=== PATIENT | female | born 1980 | race American Indian/Alaskan Native ===

== ENCOUNTER 2017-09-04 02:03 | Inpatient (IN) | payer MEDICAID ==
[~2017-09-04] VITALS: Ht 154.9 cm; Wt 72.7 kg
[2017-09-04] VITALS (19 sets, daily range): BP systolic 98–124; BP diastolic 59–89
[~2017-09-04 02:03] MED LIST: FOLI1TAB16 PO; LACT10SO PO; MULT1TAB74 PO; ONDA4TAB6 PO; PANT40TA4 PO; THI100T PO
[2017-09-04] MEDS ORDERED: octreotide inj. 1,250 MCG in normal saline 250ml IV soln 250 ML IV ONE (02:56)
[2017-09-04] MEDS ORDERED: pantoprazole 40 MG vial IV ONE (03:00)
[2017-09-04] MEDS ORDERED: piperacillin/tazo 3.375gm/50ml 50 ML IV ONE (03:00)
[2017-09-04] MEDS ORDERED: ondansetron/PF 4mg/2ml inj IV ONE (03:00)
[2017-09-04] MEDS ORDERED: pantoprazole 40MG/NS 100ML BAG 100 ML IV ONE (03:00)
[2017-09-04] MEDS ORDERED: normal saline 1000ML IV soln IVB ONE (03:00)
[2017-09-04 03:31] LABS: BASOPHILS # (AUTO) 0.1 X10'3 (0-0.2); BASOPHILS % (AUTO) 1.4 % (0-1); EOSINOPHILS % (AUTO) 0.8 % (0-6); HEMOGLOBIN 7.1 g/dl (12.0-16.0); LYMPHOCYTES # (AUTO) 1.2 X10'3 (1.1-4.8); LYMPHOCYTES % (AUTO) 21.4 % (21-51); MEAN CORPUSCULAR HEMOGLOBIN 28.2 PG (27.0-31.0); MEAN CORPUSCULAR HGB CONC 32.6 % (33.0-36.5); MEAN CORPUSCULAR VOLUME 86.7 FL (78-98); MEAN PLATELET VOLUME 6.9 FL (7.4-10.4); MONOCYTES # (AUTO) 0.6 X10'3 (0-0.9); MONOCYTES % (AUTO) 11.9 % (2-12); NEUTROPHILS # (AUTO) 3.5 X10'3 (1.8-7.7); NEUTROPHILS % (AUTO) 64.5 % (42-75); PLATELET COUNT 118 X10'3 (140-440); RED BLOOD COUNT 2.52 X10'6 (4.20-5.60); RED CELL DISTRIBUTION WIDTH 19.1 % (11.5-14.5); WHITE BLOOD COUNT 5.5 X10'3 (4.5-11.0)
[2017-09-04 03:46] LABS: ALANINE AMINOTRANSFERASE 24 U/L (12-78); ALBUMIN 1.3 G/DL (3.4-5.0); ALBUMIN/GLOBULIN RATIO 0.3 (1.1-1.5); ALKALINE PHOSPHATASE 178 IU/L (46-116); ANION GAP 4 (8-16); ASPARTATE AMINO TRANSFERASE 54 U/L (10-37); BILIRUBIN,TOTAL 0.9 MG/DL (0.1-1.0); BLOOD UREA NITROGEN 12 MG/DL (7-18); CALCIUM 6.9 MG/DL (8.5-10.1); CHLORIDE 105 MMOL/L (99-107); ETHANOL 0.158 GM/DL (0.0-0.010); GLUCOSE 120 MG/DL (70-104); LIPASE 195 U/L (73-393); MAGNESIUM 1.2 MG/DL (1.5-2.4); POTASSIUM 4.3 MMOL/L (3.5-5.1); SODIUM 136 MMOL/L (135-145); TOTAL CARBON DIOXIDE 26.9 MMOL/L (24-32); TOTAL PROTEIN 5.8 G/DL (6.4-8.2); eGFR > 90 ML/MIN
[2017-09-04 03:47] LABS: HEMATOCRIT 21.8 % (35.0-45.0); INR 1.4 INR; PARTIAL THROMBOPLASTIN TIME 30 SECONDS (22-32); PROTHROMBIN TIME 14.8 SECONDS (9.0-12.0)
[2017-09-04 03:55] LABS: LACTIC SEPSIS 1.5 MMOL/L (0.4-2.0)
[2017-09-04] MEDS ORDERED: magnesium 2GM in 50ml NS 50 ML IV ONE (03:55)
[2017-09-04] MEDS ORDERED: octreotide 200mcg/ml 5ml vial ONE (03:56)
[2017-09-04 04:11] LABS: HCG SERUM QL NEGATIVE
[2017-09-04 04:17] LABS: CLARITY,URINE SLIGHTLY CLOUDY (Clear); COLOR,URINE YELLOW (Yellow); GLUCOSE, URINE NEGATIVE (Neg); KETONES,URINE TRACE mg/dl (Neg); LEUKOCYTE ESTERASE ,URINE NEGATIVE (Neg); NITRITES, URINE POSITIVE (Neg); OCCULT BLOOD,URINE LARGE (Neg); PROTEIN,URINE 30 mg/dl (Neg)
[2017-09-04 04:21] LABS: UA COLLECTION TYPE FOLEY CATH
[2017-09-04] MEDS ORDERED: magnesium hydroxide 30ml (MOM) UD suspension PO PRN (04:25)
[2017-09-04] MEDS ORDERED: HYDROcodone/acetaminophen 10/325mg tab PO PRN (04:25)
[2017-09-04] MEDS ORDERED: magnesium 4gm in 100ml NS 100 ML IV PRN (04:25)
[2017-09-04] MEDS ORDERED: magnesium Cl slow-release 64mg tablet PO PRN (04:25)
[2017-09-04] MEDS ORDERED: HYDROcodone/acetaminophen 5mg/325mg tablet PO PRN (04:25)
[2017-09-04] MEDS ORDERED: lactulose 20gm/30ml cup PO ONE (04:25)
[2017-09-04] MEDS ORDERED: bisacodyl 10mg suppository rectal RC PRN (04:25)
[2017-09-04] MEDS ORDERED: acetaminophen 325mg tablet PO PRN ×2 (04:25)
[2017-09-04] MEDS ORDERED: mag hydrox/Alum hydrox/simeth 30ml oral suspension PO PRN (04:25)
[2017-09-04] MEDS ORDERED: metoclopramide 5 mg/ml inj IV PRN (04:25)
[2017-09-04] MEDS ORDERED: diphenhydrAMINE 50 mg/ml inj IV PRN (04:25)
[2017-09-04] MEDS ORDERED: magnesium 2GM in 50ml NS 50 ML IV PRN (04:25)
[2017-09-04 04:26] LABS: BACTERIA,URINE 4+ /HPF (Neg); MUCUS STRANDS NONE SEEN /LPF (Neg); WBC,URINE 0-4 /HPF (0-4)
[2017-09-04 04:27] LABS: SQUAMOUS EPITHELIAL CELL,UR FEW /LPF (FEW); TRANSITIONAL EPI CELLS,URINE FEW /HPF
[2017-09-04 04:28] LABS: YEAST FEW /HPF (NEGATIVE)
[2017-09-04] MEDS ORDERED: haloperidol 5mg tablet PO PRN (04:30)
[2017-09-04] MEDS ORDERED: LORazepam 2 mg/ml vial IV PRN ×2 (04:30→20:20)
[2017-09-04] MEDS ORDERED: haloperidol lactate 5mg/ml inj IM PRN (04:30)
[2017-09-04] MEDS ORDERED: dextrose 50%-water 50ml dispensing syringe IV PRN ×2 (04:30→20:20)
[2017-09-04] MEDS ORDERED: thiamine 100mg/ml 2ml inj. IV ONE (04:30)
[2017-09-04 04:55] LABS: PHOSPHORUS 2.7 MG/DL (2.3-4.5)
[2017-09-04] MEDS: normal saline 1000ml 1,000 ML IV SCH (05:12)
[2017-09-04] MEDS: pantoprazole 40mg Tablet.DR PO SCH (07:30)
[2017-09-04] MEDS: furosemide 10 MG/1 ML 10ml inj IV SCH (07:44)
[2017-09-04] MEDS: lactulose 20gm/30ml cup PO SCH ×2 (07:45→17:31)
[2017-09-04] MEDS: cefTRIAXone 1g/NS 100ml IVPB 100 ML IV SCH (07:45)
[2017-09-04] MEDS: docusate sod 100mg capsule PO SCH ×2 (07:46→19:40)
[2017-09-04] MEDS ORDERED: multivitamins, therapeutics tablet PO SCH (08:00)
[2017-09-04] MEDS ORDERED: pantoprazole 40 MG vial IV SCH (08:00)
[2017-09-04] MEDS ORDERED: folic acid 1mg tablet PO SCH (08:00)
[2017-09-04] MEDS ORDERED: thiamine 100mg tablet PO SCH (08:00)
[2017-09-04] MEDS ORDERED: rifaximin 550mg tablet PO SCH (08:00)
[2017-09-04] MEDS ORDERED: diphenhydrAMINE 25mg capsule PO ONE (08:35)
[2017-09-04] MEDS ORDERED: furosemide 20 MG/2 ML vial IV ONE (08:35)
[2017-09-04 09:03] LABS: ACETAMINOPHEN < 2.0 UG/ML (10-30)
[2017-09-04] MEDS: lactobacillus rhamnosus 10,000 MMU CELLS/CAPSULE PO SCH (17:30)
[2017-09-04] MEDS ORDERED: oxyCODONE IR 5mg (immed. release) tablet PO PRN (18:35)
[2017-09-04 19:43] LABS: BASOPHILS # (AUTO) 0.1 X10'3 (0-0.2); BASOPHILS % (AUTO) 1.5 % (0-1); EOSINOPHILS # (AUTO) 0.1 X10'3 (0-0.9); EOSINOPHILS % (AUTO) 1.7 % (0-6); LYMPHOCYTES # (AUTO) 1.2 X10'3 (1.1-4.8); MEAN CORPUSCULAR HEMOGLOBIN 28.5 PG (27.0-31.0); MEAN CORPUSCULAR HGB CONC 32.8 % (33.0-36.5); MEAN CORPUSCULAR VOLUME 86.9 FL (78-98); MEAN PLATELET VOLUME 7.3 FL (7.4-10.4); MONOCYTES # (AUTO) 0.6 X10'3 (0-0.9); NEUTROPHILS # (AUTO) 2.1 X10'3 (1.8-7.7); NEUTROPHILS % (AUTO) 52.8 % (42-75); PLATELET COUNT 78 X10'3 (140-440); RED CELL DISTRIBUTION WIDTH 17.8 % (11.5-14.5)
[2017-09-04 20:05] LABS: HEMATOCRIT 19.2 % (35.0-45.0); HEMOGLOBIN 6.3 g/dl (12.0-16.0)
[2017-09-04] MEDS ORDERED: folic acid inj. 2 MG, thiamine inj. 100 MG, MVI, adult No.4 with vit. K 10 ML in dextro... IV SCH ×4 (20:20)
[2017-09-04] MEDS ORDERED: furosemide 40mg/4ml inj IV SCH (20:20)
[2017-09-04] MEDS ORDERED: thiamine inj. 100 MG in normal saline 100ml IV soln 100 ML IV ONE (20:20)
[2017-09-04] MEDS ORDERED: diatr meglu/diatrizoate 30ml oral sol.-(3 dose) bottle PO SCH (21:00)
[2017-09-04] MEDS ORDERED: temazepam 15mg capsule PO PRN (21:00)
[2017-09-04 21:32] LABS: HCG SERUM QL NEGATIVE
[2017-09-05] VITALS: BP 107/68
[2017-09-05 01:00] VITALS: BP 115/63
[2017-09-05] MEDS: lactulose 20gm/30ml cup PO SCH ×4 (01:24→14:00)
[2017-09-05] MEDS ORDERED: thiamine 100mg/ml 2ml inj. IV ONE (02:30)
[2017-09-05 04:20] LABS: BASOPHILS # (AUTO) 0.1 X10'3 (0-0.2); BASOPHILS % (AUTO) 1.5 % (0-1); EOSINOPHILS # (AUTO) 0.1 X10'3 (0-0.9); EOSINOPHILS % (AUTO) 1.5 % (0-6); HEMATOCRIT 27.5 % (35.0-45.0); LYMPHOCYTES # (AUTO) 1.5 X10'3 (1.1-4.8); LYMPHOCYTES % (AUTO) 31.6 % (21-51); MEAN CORPUSCULAR HEMOGLOBIN 28.7 PG (27.0-31.0); MEAN CORPUSCULAR HGB CONC 32.8 % (33.0-36.5); MEAN CORPUSCULAR VOLUME 87.4 FL (78-98); MEAN PLATELET VOLUME 7.6 FL (7.4-10.4); MONOCYTES # (AUTO) 0.7 X10'3 (0-0.9); MONOCYTES % (AUTO) 13.7 % (2-12); NEUTROPHILS # (AUTO) 2.5 X10'3 (1.8-7.7); NEUTROPHILS % (AUTO) 51.7 % (42-75); PLATELET COUNT 92 X10'3 (140-440); RED BLOOD COUNT 3.14 X10'6 (4.20-5.60); RED CELL DISTRIBUTION WIDTH 16.4 % (11.5-14.5); WHITE BLOOD COUNT 4.9 X10'3 (4.5-11.0)
[2017-09-05 04:32] LABS: INR 1.4 INR; PARTIAL THROMBOPLASTIN TIME 31 SECONDS (22-32); PROTHROMBIN TIME 14.5 SECONDS (9.0-12.0)
[2017-09-05 04:36] LABS: ALANINE AMINOTRANSFERASE 24 U/L (12-78); ALBUMIN 1.4 G/DL (3.4-5.0); ALBUMIN/GLOBULIN RATIO 0.3 (1.1-1.5); ALKALINE PHOSPHATASE 139 IU/L (46-116); AMYLASE 44 U/L (25-115); ANION GAP 5 (8-16); ASPARTATE AMINO TRANSFERASE 47 U/L (10-37); BILIRUBIN,TOTAL 1.8 MG/DL (0.1-1.0); BLOOD UREA NITROGEN 14 MG/DL (7-18); CALCIUM 7.1 MG/DL (8.5-10.1); CHLORIDE 103 MMOL/L (99-107); CREATININE 0.61 MG/DL (0.40-0.90); GLUCOSE 124 MG/DL (70-104); LIPASE 102 U/L (73-393); MAGNESIUM 1.2 MG/DL (1.5-2.4); PHOSPHORUS 2.7 MG/DL (2.3-4.5); POTASSIUM 3.2 MMOL/L (3.5-5.1); SODIUM 137 MMOL/L (135-145); TOTAL CARBON DIOXIDE 28.7 MMOL/L (24-32); eGFR > 90 ML/MIN
[2017-09-05 07:00] VITALS: BP 116/72
[2017-09-05] MEDS: lactobacillus rhamnosus 10,000 MMU CELLS/CAPSULE PO SCH ×2 (07:22→17:38)
[2017-09-05] MEDS: pantoprazole 40mg Tablet.DR PO SCH (07:22)
[2017-09-05] MEDS: diatr meglu/diatrizoate 30ml oral sol.-(3 dose) bottle PO SCH ×2 (07:22→09:02)
[2017-09-05] MEDS: ondansetron/PF 4mg/2ml inj IV PRN ×3 (07:24→20:43)
[2017-09-05] MEDS: cefTRIAXone 1g/NS 100ml IVPB 100 ML IV SCH (08:00)
[2017-09-05] MEDS ORDERED: folic acid inj. 2 MG, thiamine inj. 100 MG, MVI, adult No.4 with vit. K 10 ML in dextro... IV SCH ×4 (09:00)
[2017-09-05] MEDS: furosemide 10 MG/1 ML 10ml inj IV SCH (10:43)
[2017-09-05] MEDS: docusate sod 100mg capsule PO SCH ×2 (10:44→21:13)
[2017-09-05] MEDS: folic acid 1mg tablet PO SCH (10:44)
[2017-09-05] MEDS: spironolactone 50 MG tablet PO SCH (10:44)
[2017-09-05] MEDS: thiamine 100mg tablet PO SCH (10:44)
[2017-09-05] MEDS: multivitamins, therapeutics tablet PO SCH (10:44)
[2017-09-05] MEDS ORDERED: CefTRIAXone/D5W-Rocephin 1gm 50 ML IV ONE (10:45)
[2017-09-05 11:00] VITALS: BP 118/89
[2017-09-05] MEDS: normal saline 1000ml 1,000 ML IV SCH (13:34)
[2017-09-05 19:00] VITALS: BP 120/82
[2017-09-05] MEDS ORDERED: proCHLORperazine 10 MG/2 ml inj IV PRN (20:25)
[2017-09-05] MEDS: diphenhydrAMINE 25mg capsule PO PRN (21:13)
[2017-09-06] VITALS: BP 121/84
[2017-09-06] MEDS: ondansetron/PF 4mg/2ml inj IV PRN ×4 (03:03→22:05)
[2017-09-06] MEDS ORDERED: LORazepam 2 mg/ml vial IV PRN ×2 (04:30→20:20)
[2017-09-06] MEDS ORDERED: LORazepam 1 MG tablet PO PRN ×2 (04:30→20:20)
[2017-09-06 06:10] LABS: ALANINE AMINOTRANSFERASE 25 U/L (12-78); ALBUMIN 1.2 G/DL (3.4-5.0); ALBUMIN/GLOBULIN RATIO 0.3 (1.1-1.5); ALKALINE PHOSPHATASE 107 IU/L (46-116); AMYLASE 42 U/L (25-115); ANION GAP 4 (8-16); ASPARTATE AMINO TRANSFERASE 67 U/L (10-37); BLOOD UREA NITROGEN 11 MG/DL (7-18); BUN/CREATININE RATIO 18.3 (6.6-38.0); CHLORIDE 103 MMOL/L (99-107); GLUCOSE 95 MG/DL (70-104); LIPASE 97 U/L (73-393); MAGNESIUM 1.2 MG/DL (1.5-2.4); SODIUM 136 MMOL/L (135-145); TOTAL CARBON DIOXIDE 28.9 MMOL/L (24-32); TOTAL PROTEIN 5.3 G/DL (6.4-8.2); eGFR > 90 ML/MIN
[2017-09-06 07:13] VITALS: BP 120/83
[2017-09-06 07:26] LABS: POTASSIUM 2.9 MMOL/L (3.5-5.1)
[2017-09-06] MEDS ORDERED: potassium Cl 40MEQ/NS 500ml 500 ML IV PRN ×3 (07:40→12:10)
[2017-09-06] MEDS ORDERED: potassium Cl 20 mEq SR tablet PO PRN ×3 (07:40→12:10)
[2017-09-06] MEDS: multivitamins, therapeutics tablet PO SCH (09:29)
[2017-09-06] MEDS: docusate sod 100mg capsule PO SCH ×2 (09:29→19:57)
[2017-09-06] MEDS: pantoprazole 40mg Tablet.DR PO SCH (09:29)
[2017-09-06] MEDS: folic acid 1mg tablet PO SCH (09:29)
[2017-09-06] MEDS: spironolactone 50 MG tablet PO SCH (09:30)
[2017-09-06] MEDS: lactobacillus rhamnosus 10,000 MMU CELLS/CAPSULE PO SCH ×2 (09:30→16:35)
[2017-09-06] MEDS: thiamine 100mg tablet PO SCH (09:30)
[2017-09-06] MEDS: furosemide 10 MG/1 ML 10ml inj IV SCH (09:32)
[2017-09-06] MEDS: potassium Cl 40MEQ/NS 500ml 500 ML IV PRN ×2 (09:50→18:02)
[2017-09-06 12:00] VITALS: BP 131/81
[2017-09-06] MEDS ORDERED: K and/or MAG REPLACEMENT MC SCH (12:10)
[2017-09-06] MEDS: cefTRIAXone 1g/NS 100ml IVPB 100 ML IV SCH (16:36)
[2017-09-06 20:00] VITALS: BP 118/80
[2017-09-06] MEDS ORDERED: furosemide 10 MG/1 ML 10ml inj IV ONE (21:35)
[2017-09-06 21:51] LABS: BASOPHILS % (AUTO) 1.4 % (0-1); EOSINOPHILS # (AUTO) 0.1 X10'3 (0-0.9); EOSINOPHILS % (AUTO) 3.2 % (0-6); HEMATOCRIT 25.5 % (35.0-45.0); HEMOGLOBIN 8.4 g/dl (12.0-16.0); LYMPHOCYTES # (AUTO) 0.8 X10'3 (1.1-4.8); LYMPHOCYTES % (AUTO) 23.9 % (21-51); MEAN CORPUSCULAR HEMOGLOBIN 28.9 PG (27.0-31.0); MEAN CORPUSCULAR HGB CONC 32.9 % (33.0-36.5); MEAN CORPUSCULAR VOLUME 87.7 FL (78-98); MEAN PLATELET VOLUME 7.6 FL (7.4-10.4); MONOCYTES # (AUTO) 0.3 X10'3 (0-0.9); MONOCYTES % (AUTO) 8.5 % (2-12); NEUTROPHILS # (AUTO) 2.1 X10'3 (1.8-7.7); PLATELET COUNT 76 X10'3 (140-440); RED BLOOD COUNT 2.91 X10'6 (4.20-5.60); RED CELL DISTRIBUTION WIDTH 16.8 % (11.5-14.5); WHITE BLOOD COUNT 3.4 X10'3 (4.5-11.0)
[2017-09-06 22:06] LABS: ALANINE AMINOTRANSFERASE 23 U/L (12-78); ALBUMIN 1.2 G/DL (3.4-5.0); ALBUMIN/GLOBULIN RATIO 0.3 (1.1-1.5); ALKALINE PHOSPHATASE 114 IU/L (46-116); ANION GAP 2 (8-16); ASPARTATE AMINO TRANSFERASE 69 U/L (10-37); BILIRUBIN,TOTAL 0.8 MG/DL (0.1-1.0); BLOOD UREA NITROGEN 9 MG/DL (7-18); BUN/CREATININE RATIO 15.5 (6.6-38.0); CALCIUM 6.9 MG/DL (8.5-10.1); CHLORIDE 103 MMOL/L (99-107); CREATININE 0.58 MG/DL (0.40-0.90); GLUCOSE 92 MG/DL (70-104); POTASSIUM 3.7 MMOL/L (3.5-5.1); SODIUM 134 MMOL/L (135-145); TOTAL CARBON DIOXIDE 28.7 MMOL/L (24-32); TOTAL PROTEIN 5.4 G/DL (6.4-8.2); eGFR > 90 ML/MIN
[2017-09-07] VITALS: BP 134/88
[2017-09-07 06:32] LABS: ALANINE AMINOTRANSFERASE 27 U/L (12-78); ALBUMIN 1.2 G/DL (3.4-5.0); ALBUMIN/GLOBULIN RATIO 0.3 (1.1-1.5); ALKALINE PHOSPHATASE 118 IU/L (46-116); AMYLASE 55 U/L (25-115); ANION GAP 4 (8-16); ASPARTATE AMINO TRANSFERASE 67 U/L (10-37); BILIRUBIN,TOTAL 0.9 MG/DL (0.1-1.0); BLOOD UREA NITROGEN 7 MG/DL (7-18); CALCIUM 6.9 MG/DL (8.5-10.1); CHLORIDE 103 MMOL/L (99-107); CREATININE 0.54 MG/DL (0.40-0.90); GLUCOSE 80 MG/DL (70-104); LIPASE 168 U/L (73-393); MAGNESIUM 1.1 MG/DL (1.5-2.4); POTASSIUM 3.2 MMOL/L (3.5-5.1); SODIUM 135 MMOL/L (135-145); TOTAL CARBON DIOXIDE 27.9 MMOL/L (24-32); TOTAL PROTEIN 5.3 G/DL (6.4-8.2); eGFR > 90 ML/MIN
[2017-09-07 07:53] VITALS: BP 109/80
[2017-09-07] MEDS: cefTRIAXone 1g/NS 100ml IVPB 100 ML IV SCH (08:00)
[2017-09-07] MEDS: ondansetron/PF 4mg/2ml inj IV PRN (08:06)
[2017-09-07] MEDS: potassium Cl 20 mEq SR tablet PO PRN ×2 (09:34→13:24)
[2017-09-07] MEDS: multivitamins, therapeutics tablet PO SCH (09:35)
[2017-09-07] MEDS: pantoprazole 40mg Tablet.DR PO SCH (09:35)
[2017-09-07] MEDS: lactobacillus rhamnosus 10,000 MMU CELLS/CAPSULE PO SCH ×2 (09:35→17:26)
[2017-09-07] MEDS: docusate sod 100mg capsule PO SCH ×2 (09:35→22:55)
[2017-09-07] MEDS: spironolactone 50 MG tablet PO SCH (09:36)
[2017-09-07] MEDS: thiamine 100mg tablet PO SCH (09:36)
[2017-09-07] MEDS: folic acid 1mg tablet PO SCH (09:36)
[2017-09-07] MEDS: furosemide 10 MG/1 ML 10ml inj IV SCH (09:37)
[2017-09-07] MEDS ORDERED: CefTRIAXone 1 gm/50ml D5W ADV 50 ML IV ONE (10:10)
[2017-09-07 11:00] VITALS: BP 120/90
[2017-09-07 20:00] VITALS: BP 121/76
[2017-09-07] MEDS: diphenhydrAMINE 25mg capsule PO PRN (22:57)
[2017-09-08] VITALS (9 sets, daily range): BP systolic 90–114; BP diastolic 51–77
[2017-09-08] MEDS: normal saline 1000ml 1,000 ML IV SCH (04:24)
[2017-09-08] MEDS ORDERED: LORazepam 1 MG tablet PO PRN ×2 (04:30→20:20)
[2017-09-08] MEDS ORDERED: LORazepam 2 mg/ml vial IV PRN ×2 (04:30→20:20)
[2017-09-08 06:50] LABS: ALANINE AMINOTRANSFERASE 20 U/L (12-78); ALBUMIN 1.3 G/DL (3.4-5.0); ALBUMIN/GLOBULIN RATIO 0.3 (1.1-1.5); ALKALINE PHOSPHATASE 154 IU/L (46-116); AMYLASE 60 U/L (25-115); ANION GAP 4 (8-16); ASPARTATE AMINO TRANSFERASE 61 U/L (10-37); BILIRUBIN,TOTAL 0.8 MG/DL (0.1-1.0); BLOOD UREA NITROGEN 7 MG/DL (7-18); BUN/CREATININE RATIO 13.5 (6.6-38.0); CALCIUM 6.8 MG/DL (8.5-10.1); CHLORIDE 103 MMOL/L (99-107); CREATININE 0.52 MG/DL (0.40-0.90); GLUCOSE 96 MG/DL (70-104); LIPASE 201 U/L (73-393); POTASSIUM 3.2 MMOL/L (3.5-5.1); SODIUM 135 MMOL/L (135-145); TOTAL CARBON DIOXIDE 28.3 MMOL/L (24-32); TOTAL PROTEIN 5.3 G/DL (6.4-8.2); eGFR > 90 ML/MIN
[2017-09-08] MEDS: lactobacillus rhamnosus 10,000 MMU CELLS/CAPSULE PO SCH (07:30)
[2017-09-08 07:36] LABS: BASOPHILS % (AUTO) 0.9 % (0-1); EOSINOPHILS # (AUTO) 0.1 X10'3 (0-0.9); EOSINOPHILS % (AUTO) 2.8 % (0-6); HEMATOCRIT 24.1 % (35.0-45.0); HEMOGLOBIN 7.9 g/dl (12.0-16.0); LYMPHOCYTES # (AUTO) 0.8 X10'3 (1.1-4.8); LYMPHOCYTES % (AUTO) 24.8 % (21-51); MEAN CORPUSCULAR HEMOGLOBIN 28.9 PG (27.0-31.0); MEAN CORPUSCULAR HGB CONC 32.6 % (33.0-36.5); MEAN CORPUSCULAR VOLUME 88.6 FL (78-98); MONOCYTES # (AUTO) 0.5 X10'3 (0-0.9); MONOCYTES % (AUTO) 14.6 % (2-12); NEUTROPHILS # (AUTO) 1.8 X10'3 (1.8-7.7); NEUTROPHILS % (AUTO) 56.9 % (42-75); PLATELET COUNT 66 X10'3 (140-440); RED BLOOD COUNT 2.72 X10'6 (4.20-5.60); RED CELL DISTRIBUTION WIDTH 17.2 % (11.5-14.5); WHITE BLOOD COUNT 3.3 X10'3 (4.5-11.0)
[2017-09-08] MEDS: spironolactone 50 MG tablet PO SCH (07:54)
[2017-09-08] MEDS ORDERED: magnesium 2GM in 50ml NS 50 ML IV PRN (07:55)
[2017-09-08] MEDS ORDERED: magnesium Cl slow-release 64mg tablet PO PRN (07:55)
[2017-09-08] MEDS ORDERED: magnesium 4gm in 100ml NS 100 ML IV PRN (07:55)
[2017-09-08] MEDS: folic acid 1mg tablet PO SCH (07:57)
[2017-09-08] MEDS: docusate sod 100mg capsule PO SCH ×2 (07:57→22:17)
[2017-09-08] MEDS: furosemide 10 MG/1 ML 10ml inj IV SCH (07:57)
[2017-09-08] MEDS: multivitamins, therapeutics tablet PO SCH (07:58)
[2017-09-08] MEDS: thiamine 100mg tablet PO SCH (07:58)
[2017-09-08] MEDS ORDERED: CefTRIAXone 1 gm/50ml D5W ADV 50 ML IV ONE (07:59)
[2017-09-08] MEDS: cefTRIAXone 1g/NS 100ml IVPB 100 ML IV SCH (08:00)
[2017-09-08] MEDS: pantoprazole 40mg Tablet.DR PO SCH (08:01)
[2017-09-08] MEDS ORDERED: normal saline 1000ml 1,000 ML IV SCH (14:04)
[2017-09-08] MEDS ORDERED: LIDOcaine Viscous 15ml cup PO ONE (14:05)
[2017-09-08] MEDS ORDERED: simethicone 40mg/0.6ml oral drops 30ml MC ONE (14:05)
[2017-09-08] MEDS ORDERED: fentaNYL/PF 50MCG/1 ML 2ML syringe IV PRN (14:05)
[2017-09-08] MEDS ORDERED: MIDAZolam 5mg/5ml vial IV PRN (14:05)
[2017-09-08] MEDS ORDERED: LIDOcaine Viscous 15ml cup ONE (15:11)
[2017-09-08] MEDS ORDERED: MIDAZolam 1mg/ml 10ml vial ONE (15:11)
[2017-09-08] MEDS ORDERED: fentaNYL/PF 50MCG/1 ML 2ML syringe ONE (15:11)
[2017-09-08] MEDS: potassium Cl 20 mEq SR tablet PO PRN ×2 (16:56→23:41)
[2017-09-08] MEDS: levoFLOXACIN 500mg tablet PO SCH (16:56)
[2017-09-08] MEDS: octreotide inj. 1,250 MCG in normal saline 250ml IV soln 243.75 ML IV SCH (17:36)
[2017-09-09] VITALS: BP 100/65
[2017-09-09] MEDS: ondansetron/PF 4mg/2ml inj IV PRN ×2 (03:49→19:56)
[2017-09-09 06:56] LABS: ALANINE AMINOTRANSFERASE 26 U/L (12-78); ALBUMIN 1.4 G/DL (3.4-5.0); ALBUMIN/GLOBULIN RATIO 0.3 (1.1-1.5); ALKALINE PHOSPHATASE 150 IU/L (46-116); AMYLASE 51 U/L (25-115); ANION GAP 6 (8-16); ASPARTATE AMINO TRANSFERASE 61 U/L (10-37); BILIRUBIN,TOTAL 1.1 MG/DL (0.1-1.0); BLOOD UREA NITROGEN 3 MG/DL (7-18); BUN/CREATININE RATIO 5.7 (6.6-38.0); CHLORIDE 102 MMOL/L (99-107); CREATININE 0.53 MG/DL (0.40-0.90); GLUCOSE 133 MG/DL (70-104); LIPASE 123 U/L (73-393); MAGNESIUM 1.7 MG/DL (1.5-2.4); POTASSIUM 4.2 MMOL/L (3.5-5.1); SODIUM 133 MMOL/L (135-145); TOTAL CARBON DIOXIDE 25.2 MMOL/L (24-32); eGFR > 90 ML/MIN
[2017-09-09 07:29] VITALS: BP 102/66
[2017-09-09] MEDS: pantoprazole 40mg Tablet.DR PO SCH (10:50)
[2017-09-09] MEDS: thiamine 100mg tablet PO SCH (10:50)
[2017-09-09] MEDS: LACTOBACILLUS RHAMNOSUS GG 15 billion unit sprinkle caps PO SCH (10:51)
[2017-09-09] MEDS: multivitamins, therapeutics tablet PO SCH (10:51)
[2017-09-09] MEDS: folic acid 1mg tablet PO SCH (10:52)
[2017-09-09] MEDS: levoFLOXACIN 500mg tablet PO SCH (10:52)
[2017-09-09] MEDS: docusate sod 100mg capsule PO SCH ×2 (10:52→19:56)
[2017-09-09] MEDS: spironolactone 50 MG tablet PO SCH (10:53)
[2017-09-09] MEDS: cefTRIAXone 1g/NS 100ml IVPB 100 ML IV SCH (10:55)
[2017-09-09] MEDS: furosemide 10 MG/1 ML 10ml inj IV SCH (10:56)
[2017-09-09 11:00] VITALS: BP 124/77
[2017-09-09] MEDS: octreotide inj. 1,250 MCG in normal saline 250ml IV soln 243.75 ML IV SCH ×2 (17:00→21:58)
[2017-09-09 19:00] VITALS: BP 106/71
[2017-09-09] MEDS: oxyCODONE IR 5mg (immed. release) tablet PO PRN (19:57)
[2017-09-10] VITALS: BP 116/78
[2017-09-10] MEDS: normal saline 1000ml 1,000 ML IV SCH (05:25)
[2017-09-10 06:42] LABS: MAGNESIUM 1.3 MG/DL (1.5-2.4); POTASSIUM 3.5 MMOL/L (3.5-5.1)
[2017-09-10 07:57] VITALS: BP 98/65
[2017-09-10] MEDS: LACTOBACILLUS RHAMNOSUS GG 15 billion unit sprinkle caps PO SCH (09:25)
[2017-09-10] MEDS: spironolactone 50 MG tablet PO SCH (09:26)
[2017-09-10] MEDS: thiamine 100mg tablet PO SCH (09:26)
[2017-09-10] MEDS: docusate sod 100mg capsule PO SCH (09:26)
[2017-09-10] MEDS: multivitamins, therapeutics tablet PO SCH (09:26)
[2017-09-10] MEDS: folic acid 1mg tablet PO SCH (09:26)
[2017-09-10] MEDS: furosemide 10 MG/1 ML 10ml inj IV SCH (09:28)
[2017-09-10] MEDS: cefTRIAXone 1g/NS 100ml IVPB 100 ML IV SCH (09:29)
[2017-09-10] MEDS: pantoprazole 40mg Tablet.DR PO SCH (09:30)
[2017-09-10] MEDS: ondansetron/PF 4mg/2ml inj IV PRN (09:39)
[2017-09-10] MEDS: oxyCODONE IR 5mg (immed. release) tablet PO PRN ×2 (09:39→15:01)
[2017-09-10 11:00] VITALS: BP 97/61
[2017-09-10] MEDS: levoFLOXACIN 500mg tablet PO SCH (11:33)
[2017-09-10] MEDS ORDERED: RIFA200T2 PO (12:45)
[2017-09-10] MEDS ORDERED: SPIR50TA3 PO (15:25)
[2017-09-10] MEDS ORDERED: PANT40TA4 PO (16:14)
== END 2017-09-10 16:59 | disposition home or self-care (01) ==
LOC: ER 02:04 → ED HOLD 04:24 → SUR 3N 08:28
PROVIDERS: ADMIT Family Medicine; ATTEND Internal Medicine
PROC: 30233N1 Transfusion of Nonautologous Red Blood Cells into Peripheral Vein, Percutaneous Approach (ICD-10-PCS; principal; 2017-09-04)
PROC: 0W9G3ZZ Drainage of Peritoneal Cavity, Percutaneous Approach (ICD-10-PCS; 2017-09-04)
PROC: 06L38CZ Occlusion of Esophageal Vein with Extraluminal Device, Via Natural or Artificial Opening Endoscopic (ICD-10-PCS; 2017-09-08)
DX: K76.6 Portal hypertension (principal); I85.11 Secondary esophageal varices with bleeding; D69.6 Thrombocytopenia, unspecified; G31.2 Degeneration of nervous system due to alcohol; K72.90 Hepatic failure, unspecified without coma; E88.09 Other disorders of plasma-protein metabolism, not elsewhere classified; E83.42 Hypomagnesemia; K70.31 Alcoholic cirrhosis of liver with ascites; N39.0 Urinary tract infection, site not specified; K29.20 Alcoholic gastritis without bleeding; D63.8 Anemia in other chronic diseases classified elsewhere; F10.229 Alcohol dependence with intoxication, unspecified; F12.90 Cannabis use, unspecified, uncomplicated; F17.210 Nicotine dependence, cigarettes, uncomplicated; G89.4 Chronic pain syndrome; J44.9 Chronic obstructive pulmonary disease, unspecified; K80.20 Calculus of gallbladder without cholecystitis without obstruction; G43.909 Migraine, unspecified, not intractable, without status migrainosus; R16.1 Splenomegaly, not elsewhere classified; K31.89 Other diseases of stomach and duodenum; Z79.899 Other long term (current) drug therapy; Z86.19 Personal history of other infectious and parasitic diseases
CPT/HCPCS: 36415; 43244; 49083; 51702; 74176; 80053; 80320; 80329; 81001; 82140; 82150; 83605; 83690; 83735; 83880; 84100; 84132; 84703; 85025; 85610; 85730; 86885; 86900; 86901; 86920; 86922; 87040; 87070; 87075; 87102; 93005; 96365; 96368; 96375; 97116; 97162; 99291; A4620; A6213; A6449; C1758; C9113; G0500; J0696; J1200; J1940; J2060; J2250; J2270; J2354; J2405; J2543; J2765; J3010; J3411; J3475; J3480; J3490; J7030; J7060; P9016; Q0163; Q9963

== ENCOUNTER 2017-09-19 03:46 | Emergency (ER) | payer MEDICAID ==
[~2017-09-19] VITALS: Ht 149.9 cm; Wt 43.0 kg
[~2017-09-19 03:46] MED LIST changes: +RIFA200T2 PO; +SPIR50TA3 PO
[2017-09-19] MEDS ORDERED: albumin (human) 25% 100 ML IV solution IV ONE ×2 (03:55→04:25)
[2017-09-19 04:43] VITALS: BP 125/59
[2017-09-19] MEDS ORDERED: acetaminophen 325mg tablet PO ONE (05:30)
[2017-09-20] MEDS ORDERED: SPIR50TA3 PO (16:44)
[2017-09-20] MEDS ORDERED: FURO40TA4 PO (16:44)
== END 2017-09-19 05:37 | disposition home or self-care (01) ==
LOC: ER 03:47
DX: K70.31 Alcoholic cirrhosis of liver with ascites (principal); R10.9 Unspecified abdominal pain; G43.909 Migraine, unspecified, not intractable, without status migrainosus; J44.9 Chronic obstructive pulmonary disease, unspecified; F12.90 Cannabis use, unspecified, uncomplicated; Z59.0 Homelessness; Z56.0 Unemployment, unspecified
CPT/HCPCS: 49083; 96374; 99285; A6258; P9047

== ENCOUNTER 2017-09-20 16:19 | Emergency (ER) | payer MEDICAID ==
[~2017-09-20] VITALS: Ht 154.9 cm; Wt 72.7 kg
[2017-09-20] MEDS ORDERED: FURO40TA4 PO (16:44)
[2017-09-20] MEDS ORDERED: SPIR50TA3 PO (16:44)
[2017-09-20 16:57] LABS: CLARITY,URINE Clear (Clear); COLOR,URINE Yellow (Yellow); GLUCOSE, URINE Negative (Neg); KETONES,URINE Negative (Neg); LEUKOCYTE ESTERASE ,URINE Negative (Neg); NITRITES, URINE Negative (Neg); OCCULT BLOOD,URINE Moderate (Neg); PROTEIN,URINE Trace mg/dl (Neg)
[2017-09-20 17:00] LABS: UA COLLECTION TYPE CLN CATCH MIDSTREAM
[2017-09-20 17:12] LABS: URINE AMPHETAMINE SCREEN NEGATIVE (Neg); URINE BARBITUATE SCREEN NEGATIVE (Neg); URINE BENZODIAZEPINES SCREEN NEGATIVE (Neg); URINE CANNABINOID SCREEN NEGATIVE (Neg); URINE COCAINE SCREEN NEGATIVE (Neg); URINE METHADONE SCREEN NEGATIVE (Neg); URINE OPIATE SCREEN NEGATIVE (Neg); URINE PHENCYCLIDINE SCREEN NEGATIVE (Neg)
[2017-09-20 17:19] LABS: WBC,URINE 0-4 /HPF (0-4)
[2017-09-20 17:20] LABS: BACTERIA,URINE 1+ /HPF (Neg); SQUAMOUS EPITHELIAL CELL,UR MANY /LPF (FEW)
[2017-09-20 19:02] VITALS: BP 110/70
== END 2017-09-20 19:07 | disposition home or self-care (01) ==
LOC: ER 16:19
DX: K74.60 Unspecified cirrhosis of liver (principal); F10.20 Alcohol dependence, uncomplicated; J44.9 Chronic obstructive pulmonary disease, unspecified; G89.29 Other chronic pain; F12.10 Cannabis abuse, uncomplicated; F17.210 Nicotine dependence, cigarettes, uncomplicated; Z59.0 Homelessness
CPT/HCPCS: 80305; 81001; 99284

== ENCOUNTER 2017-09-22 10:48 | Emergency (ER) | payer MEDICAID ==
[~2017-09-22] VITALS: Ht 162.6 cm; Wt 55.0 kg
[~2017-09-22 10:48] MED LIST changes: +FURO40TA4 PO
[2017-09-22 11:12] LABS: CLARITY,URINE Clear (Clear); COLOR,URINE Yellow (Yellow); GLUCOSE, URINE Negative (Neg); KETONES,URINE Negative (Neg); LEUKOCYTE ESTERASE ,URINE Negative (Neg); NITRITES, URINE Negative (Neg); OCCULT BLOOD,URINE Moderate (Neg); PROTEIN,URINE 30 mg/dl (Neg)
[2017-09-22 11:13] LABS: UA COLLECTION TYPE CLN CATCH MIDSTREAM
[2017-09-22 11:23] LABS: SQUAMOUS EPITHELIAL CELL,UR FEW /LPF (FEW)
[2017-09-22 11:24] LABS: BACTERIA,URINE FEW /HPF (Neg); WBC,URINE 0-4 /HPF (0-4)
[2017-09-22 13:31] VITALS: BP 131/78
== END 2017-09-22 13:33 | disposition home or self-care (01) ==
LOC: ER 10:49
DX: F10.129 Alcohol abuse with intoxication, unspecified (principal); G43.909 Migraine, unspecified, not intractable, without status migrainosus; J44.9 Chronic obstructive pulmonary disease, unspecified; G89.29 Other chronic pain; Z86.19 Personal history of other infectious and parasitic diseases; Z59.0 Homelessness; Z56.0 Unemployment, unspecified; Z79.899 Other long term (current) drug therapy; Y90.9 Presence of alcohol in blood, level not specified
CPT/HCPCS: 81001; 99284; A4353

== ENCOUNTER 2017-10-19 13:02 | Emergency (ER) | payer MEDICAID, OTHER ==
[~2017-10-19] VITALS: Ht 149.9 cm; Wt 72.7 kg
[2017-10-19] MEDS ORDERED: normal saline 1000ML IV soln IVB ONE ×2 (13:30→16:05)
[2017-10-19 14:08] LABS: HEMATOCRIT 31.8 % (35.0-45.0); HEMOGLOBIN 10.3 g/dl (12.0-16.0); MEAN CORPUSCULAR HEMOGLOBIN 24.8 PG (27.0-31.0); MEAN CORPUSCULAR HGB CONC 32.2 % (33.0-36.5); MEAN CORPUSCULAR VOLUME 77.2 FL (78-98); MEAN PLATELET VOLUME 8.1 FL (7.4-10.4); RED BLOOD COUNT 4.13 X10'6 (4.20-5.60); RED CELL DISTRIBUTION WIDTH 19.6 % (11.5-14.5)
[2017-10-19 14:25] LABS: ALANINE AMINOTRANSFERASE 31 U/L (12-78); ALBUMIN 2.2 G/DL (3.4-5.0); ALBUMIN/GLOBULIN RATIO 0.3 (1.1-1.5); ALKALINE PHOSPHATASE 215 IU/L (46-116); ANION GAP 9 (8-16); ASPARTATE AMINO TRANSFERASE 106 U/L (10-37); BILIRUBIN,TOTAL 0.7 MG/DL (0.1-1.0); BLOOD UREA NITROGEN 3 MG/DL (7-18); BUN/CREATININE RATIO 8.6 (6.6-38.0); CALCIUM 7.4 MG/DL (8.5-10.1); CHLORIDE 109 MMOL/L (99-107); CREATININE 0.35 MG/DL (0.40-0.90); POTASSIUM 3.7 MMOL/L (3.5-5.1); SODIUM 149 MMOL/L (135-145); TOTAL CARBON DIOXIDE 31.3 MMOL/L (24-32); TOTAL PROTEIN 8.5 G/DL (6.4-8.2); eGFR > 90 ML/MIN
[2017-10-19 14:26] LABS: PLATELET COUNT 45 X10'3 (140-440)
[2017-10-19 14:28] LABS: ETHANOL 0.498 GM/DL (0.0-0.010); GLUCOSE 96 MG/DL (70-104)
[2017-10-19 14:42] LABS: ANISOCYTOSIS 2+; PLATELET ESTIMATE DECREASED; POLYCHROMASIA 1+; ROULEAUX 1+; SPHEROCYTES FEW; TARGET CELLS 1+; TOTAL CELLS COUNTED 100
[2017-10-19 14:43] LABS: HYPOCHROMASIA 1+; LARGE PLATELETS FEW; MICROCYTOSIS 1+; SMUDGE CELLS FEW
[2017-10-19 14:44] LABS: NUCLEATED RED BLOOD CELLS 1 /100WBC (0-0)
[2017-10-19 17:02] VITALS: BP 105/65
== END 2017-10-19 17:03 | disposition home or self-care (01) ==
LOC: ER 13:04
DX: S46.811A Strain of other muscles, fascia and tendons at shoulder and upper arm level, right arm, initial encounter (principal); E86.0 Dehydration; F10.129 Alcohol abuse with intoxication, unspecified; K70.30 Alcoholic cirrhosis of liver without ascites; D69.6 Thrombocytopenia, unspecified; J44.9 Chronic obstructive pulmonary disease, unspecified; G89.29 Other chronic pain; D64.9 Anemia, unspecified; F12.10 Cannabis abuse, uncomplicated; Z59.0 Homelessness; Z56.0 Unemployment, unspecified; Z79.899 Other long term (current) drug therapy; W19.XXXA Unspecified fall, initial encounter; Y93.89 Activity, other specified; Y92.89 Other specified places as the place of occurrence of the external cause; Y99.9 Unspecified external cause status; Y90.9 Presence of alcohol in blood, level not specified
CPT/HCPCS: 36415; 70450; 73030; 73110; 73130; 80053; 80320; 84484; 85025; 93005; 96360; 99285; J7030

== ENCOUNTER 2018-01-27 13:35 | Emergency (ER) | payer MEDICAID, OTHER ==
[~2018-01-27] VITALS: Ht 154.9 cm; Wt 72.7 kg
[~2018-01-27 13:35] MED LIST changes: -FURO40TA4 PO
[2018-01-27 13:42] VITALS: BP 104/47
== END 2018-01-27 14:25 | disposition home or self-care (01) ==
LOC: ER 13:35
DX: K70.9 Alcoholic liver disease, unspecified (principal); F10.129 Alcohol abuse with intoxication, unspecified; G43.909 Migraine, unspecified, not intractable, without status migrainosus; J44.9 Chronic obstructive pulmonary disease, unspecified; G89.29 Other chronic pain; F12.10 Cannabis abuse, uncomplicated; Z86.19 Personal history of other infectious and parasitic diseases; Z91.14 Patient's other noncompliance with medication regimen; Z56.0 Unemployment, unspecified; Z59.0 Homelessness; Z79.899 Other long term (current) drug therapy; Y90.0 Blood alcohol level of less than 20 mg/100 ml
CPT/HCPCS: 99284

== ENCOUNTER 2018-02-12 18:25 | Inpatient (IN) | payer MEDICAID, OTHER ==
[~2018-02-12] VITALS: Ht 160 cm; Wt 77.0 kg
[~2018-02-12 18:25] MED LIST changes: -SPIR50TA3 PO; +SPIR50TA5 PO
[2018-02-12] MEDS ORDERED: normal saline 1000ML IV soln IVB ONE (19:50)
[2018-02-12] MEDS ORDERED: thiamine inj. 100 MG in normal saline 100ml IV soln 99 ML IV ONE (19:50)
[2018-02-12] MEDS ORDERED: ondansetron/PF 4mg/2ml inj IV ONE (19:50)
[2018-02-12] MEDS ORDERED: phenobarbital inj 260 MG in normal saline 100ml IV soln 99 ML IV STA (19:55)
[2018-02-12] MEDS: magnesium/D5W IVPB 100 ML IV SCH ×2 (20:29→20:53)
[2018-02-12 20:55] LABS: HEMATOCRIT 26.8 % (35.0-45.0); HEMOGLOBIN 8.6 g/dl (12.0-16.0); MEAN CORPUSCULAR HEMOGLOBIN 24.4 PG (27.0-31.0); MEAN CORPUSCULAR HGB CONC 32.2 % (33.0-36.5); MEAN CORPUSCULAR VOLUME 75.9 FL (78-98); MEAN PLATELET VOLUME 10.6 FL (7.4-10.4); RED BLOOD COUNT 3.53 X10'6 (4.20-5.60); RED CELL DISTRIBUTION WIDTH 21.5 % (11.5-14.5)
[2018-02-12 20:56] LABS: ALANINE AMINOTRANSFERASE 32 U/L (12-78); ALBUMIN 1.3 G/DL (3.4-5.0); ALBUMIN/GLOBULIN RATIO 0.3 (1.1-1.5); ALKALINE PHOSPHATASE 224 IU/L (46-116); ANION GAP 8 (8-16); ASPARTATE AMINO TRANSFERASE 142 U/L (10-37); BILIRUBIN,TOTAL 0.7 MG/DL (0.1-1.0); BLOOD UREA NITROGEN 4 MG/DL (7-18); BUN/CREATININE RATIO 8.2 (6.6-38.0); CALCIUM 6.8 MG/DL (8.5-10.1); CHLORIDE 103 MMOL/L (99-107); CREATININE 0.49 MG/DL (0.40-0.90); GLUCOSE 132 MG/DL (70-104); MAGNESIUM 1.4 MG/DL (1.5-2.4); POTASSIUM 3.8 MMOL/L (3.5-5.1); SODIUM 138 MMOL/L (135-145); TOTAL CARBON DIOXIDE 27.4 MMOL/L (24-32); TOTAL PROTEIN 6.3 G/DL (6.4-8.2); eGFR > 90 ML/MIN
[2018-02-12 20:57] LABS: ETHANOL 0.419 GM/DL (0.0-0.010)
[2018-02-12] MEDS ORDERED: temazepam 15mg capsule PO PRN (21:00)
[2018-02-12 21:26] LABS: PLATELET COUNT 14 X10'3 (140-440)
[2018-02-12 22:06] LABS: ANISOCYTOSIS 3+; NUCLEATED RED BLOOD CELLS 3 /100WBC (0-0); PLATELET ESTIMATE DECREASED; TOTAL CELLS COUNTED 100
[2018-02-12 22:07] LABS: MICROCYTOSIS 1+
[2018-02-12 22:08] LABS: TARGET CELLS 1+
[2018-02-12] MEDS ORDERED: haloperidol 5mg tablet PO PRN (22:10)
[2018-02-12] MEDS ORDERED: dicyclomine 10 MG capsule PO PRN (22:10)
[2018-02-12] MEDS ORDERED: thiamine 100mg/ml 2ml inj. IV ONE (22:10)
[2018-02-12] MEDS ORDERED: dextrose 50%-water 50ml dispensing syringe IV PRN (22:10)
[2018-02-12] MEDS ORDERED: magnesium hydroxide 30ml (MOM) UD suspension PO PRN (22:10)
[2018-02-12] MEDS ORDERED: diphenhydrAMINE 25mg capsule PO PRN (22:10)
[2018-02-12] MEDS ORDERED: HYDROcodone/acetaminophen 5mg/325mg tablet PO PRN (22:10)
[2018-02-12] MEDS ORDERED: LORazepam 1 MG tablet PO PRN (22:10)
[2018-02-12] MEDS ORDERED: HYDROmorphone inj. 0.5 MG/0.5 ML DISP.SYRIN IV PRN ×2 (22:10)
[2018-02-12] MEDS ORDERED: acetaminophen 650mg rectal suppository RC PRN (22:10)
[2018-02-12] MEDS ORDERED: diphenhydrAMINE 50 mg/ml inj IV PRN (22:10)
[2018-02-12] MEDS ORDERED: bisacodyl 10mg suppository rectal RC PRN (22:10)
[2018-02-12] MEDS ORDERED: haloperidol lactate 5mg/ml inj IM PRN (22:10)
[2018-02-12] MEDS ORDERED: mag hydrox/Alum hydrox/simeth 30ml oral suspension PO PRN (22:10)
[2018-02-12] MEDS ORDERED: cyclobenzaprine 10mg tablet PO PRN (22:10)
[2018-02-12] MEDS ORDERED: HYDROcodone/acetaminophen 10/325mg tab PO PRN (22:10)
[2018-02-12] MEDS ORDERED: magnesium 2GM in 50ml NS 50 ML IV PRN (22:10)
[2018-02-12] MEDS ORDERED: acetaminophen 325mg tablet PO PRN ×2 (22:10)
[2018-02-12] MEDS ORDERED: magnesium 4gm in 100ml NS 100 ML IV PRN (22:10)
[2018-02-12] MEDS ORDERED: morphine 4 MG/ML inj SYRINge IV PRN ×2 (22:10)
[2018-02-12 22:35] LABS: INR 1.3 INR; PARTIAL THROMBOPLASTIN TIME 31 SECONDS (22-32); PROTHROMBIN TIME 13.7 SECONDS (9.0-12.0)
[2018-02-12 22:37] LABS: LIPASE 339 U/L (73-393); PHOSPHORUS 3.9 MG/DL (2.3-4.5)
[2018-02-13] MEDS: lactulose 20gm/30ml cup PO SCH ×3 (00:29→15:31)
[2018-02-13] MEDS: normal saline 1000ml 1,000 ML IV SCH (00:29)
[2018-02-13 00:30] VITALS: BP 123/80
[2018-02-13] MEDS: ondansetron/PF 4mg/2ml inj IV PRN (03:24)
[2018-02-13] MEDS: LORazepam 2 mg/ml vial IV PRN ×3 (05:27→16:57)
[2018-02-13 05:49] LABS: HEMATOCRIT 26.3 % (35.0-45.0); HEMOGLOBIN 8.3 g/dl (12.0-16.0); MEAN CORPUSCULAR HEMOGLOBIN 24.2 PG (27.0-31.0); MEAN CORPUSCULAR HGB CONC 31.6 % (33.0-36.5); MEAN CORPUSCULAR VOLUME 76.6 FL (78-98); MEAN PLATELET VOLUME 8.8 FL (7.4-10.4); RED BLOOD COUNT 3.43 X10'6 (4.20-5.60); RED CELL DISTRIBUTION WIDTH 21.4 % (11.5-14.5); WHITE BLOOD COUNT 2.1 X10'3 (4.5-11.0)
[2018-02-13 06:00] VITALS: BP 107/64
[2018-02-13 06:05] LABS: ALANINE AMINOTRANSFERASE 31 U/L (12-78); ALBUMIN 1.2 G/DL (3.4-5.0); ALBUMIN/GLOBULIN RATIO 0.3 (1.1-1.5); ALKALINE PHOSPHATASE 241 IU/L (46-116); ANION GAP 7 (8-16); ASPARTATE AMINO TRANSFERASE 149 U/L (10-37); BILIRUBIN,TOTAL 0.8 MG/DL (0.1-1.0); BLOOD UREA NITROGEN 2 MG/DL (7-18); BUN/CREATININE RATIO 4.8 (6.6-38.0); CALCIUM 6.4 MG/DL (8.5-10.1); CHLORIDE 105 MMOL/L (99-107); CREATININE 0.42 MG/DL (0.40-0.90); GLUCOSE 97 MG/DL (70-104); MAGNESIUM 1.7 MG/DL (1.5-2.4); PLATELET COUNT 13 X10'3 (140-440); POTASSIUM 3.3 MMOL/L (3.5-5.1); SODIUM 138 MMOL/L (135-145); TOTAL CARBON DIOXIDE 25.6 MMOL/L (24-32); TOTAL PROTEIN 5.9 G/DL (6.4-8.2); eGFR > 90 ML/MIN
[2018-02-13 06:34] LABS: BASOPHILS % (MANUAL) 2 % (0-1); EOSINOPHILS % (MANUAL) 6 % (0-6); LYMPHOCYTES % (MANUAL) 15 % (21-51); MONOCYTES % (MANUAL) 11 % (2-12); NEUTROPHILS % (MANUAL) 67 % (42-75); TOTAL CELLS COUNTED 100
[2018-02-13 06:35] LABS: ANISOCYTOSIS 3+; PLATELET ESTIMATE DECREASED
[2018-02-13 06:36] LABS: TARGET CELLS FEW
[2018-02-13] MEDS: spironolactone 50 MG tablet PO SCH ×2 (07:07→20:23)
[2018-02-13] MEDS: folic acid 1mg tablet PO SCH (07:14)
[2018-02-13] MEDS: docusate sod 100mg capsule PO SCH ×2 (07:14→20:23)
[2018-02-13] MEDS: pantoprazole 40mg Tablet.DR PO SCH ×2 (07:14→20:23)
[2018-02-13] MEDS: multivitamins, therapeutics tablet PO SCH (07:15)
[2018-02-13] MEDS ORDERED: spironolactone 50 MG tablet PO SCH (08:30)
[2018-02-13] MEDS ORDERED: HISTORIAN (09:34)
[2018-02-13 10:00] VITALS: BP 112/73
[2018-02-13] MEDS ORDERED: potassium Cl 20 mEq SR tablet PO PRN ×2 (10:30)
[2018-02-13] MEDS ORDERED: potassium Cl 40MEQ/NS 500ml 500 ML IV PRN ×2 (10:30)
[2018-02-13] MEDS ORDERED: LIDOcaine 1% 30ml vial 5 ML in potassium Cl 40MEQ/NS 500ml 500 ML IV PRN (12:00)
[2018-02-13 18:00] VITALS: BP 108/68
[2018-02-13] MEDS: lactobacillus rhamnosus 10,000 MMU CELLS/CAPSULE PO SCH (20:23)
[2018-02-13 21:56] LABS: URINE HCG NEGATIVE (NEG)
[2018-02-13 22:00] LABS: CLARITY,URINE CLOUDY (Clear); COLOR,URINE AMBER (Yellow); GLUCOSE, URINE NEGATIVE (Neg); KETONES,URINE NEGATIVE (Neg); LEUKOCYTE ESTERASE ,URINE NEGATIVE (Neg); NITRITES, URINE POSITIVE (Neg); OCCULT BLOOD,URINE LARGE (Neg); PH,URINE 5.5 (4.8-8.0); PROTEIN,URINE >=300 mg/dl (Neg); UA COLLECTION TYPE CLN CATCH MIDSTREAM
[2018-02-13 22:04] LABS: URINE AMPHETAMINE SCREEN NEGATIVE (Neg); URINE BARBITUATE SCREEN POSITIVE (Neg); URINE BENZODIAZEPINES SCREEN NEGATIVE (Neg); URINE CANNABINOID SCREEN NEGATIVE (Neg); URINE COCAINE SCREEN NEGATIVE (Neg); URINE METHADONE SCREEN NEGATIVE (Neg); URINE OPIATE SCREEN NEGATIVE (Neg); URINE PHENCYCLIDINE SCREEN NEGATIVE (Neg)
[2018-02-13 22:15] LABS: BACTERIA,URINE 4+ /HPF (Neg); SQUAMOUS EPITHELIAL CELL,UR FEW /LPF (FEW)
[2018-02-14] MEDS: lactulose 20gm/30ml cup PO SCH ×3 (00:13→15:47)
[2018-02-14 05:45] LABS: HEMATOCRIT 26.6 % (35.0-45.0); HEMOGLOBIN 8.4 g/dl (12.0-16.0); MEAN CORPUSCULAR HEMOGLOBIN 24.8 PG (27.0-31.0); MEAN CORPUSCULAR HGB CONC 31.7 % (33.0-36.5); MEAN CORPUSCULAR VOLUME 78.3 FL (78-98); MEAN PLATELET VOLUME 8.9 FL (7.4-10.4); RED BLOOD COUNT 3.39 X10'6 (4.20-5.60); RED CELL DISTRIBUTION WIDTH 21.2 % (11.5-14.5)
[2018-02-14 06:00] VITALS: BP 130/87
[2018-02-14 06:06] LABS: PLATELET COUNT 13 X10'3 (140-440)
[2018-02-14 06:13] LABS: ALANINE AMINOTRANSFERASE 32 U/L (12-78); ALBUMIN 1.2 G/DL (3.4-5.0); ALBUMIN/GLOBULIN RATIO 0.2 (1.1-1.5); ALKALINE PHOSPHATASE 244 IU/L (46-116); ANION GAP 5 (8-16); ASPARTATE AMINO TRANSFERASE 160 U/L (10-37); BLOOD UREA NITROGEN 3 MG/DL (7-18); BUN/CREATININE RATIO 6.4 (6.6-38.0); CALCIUM 6.2 MG/DL (8.5-10.1); CHLORIDE 103 MMOL/L (99-107); CREATININE 0.47 MG/DL (0.40-0.90); GLUCOSE 95 MG/DL (70-104); MAGNESIUM 1.2 MG/DL (1.5-2.4); POTASSIUM 3.7 MMOL/L (3.5-5.1); SODIUM 136 MMOL/L (135-145); TOTAL CARBON DIOXIDE 28.3 MMOL/L (24-32); TOTAL PROTEIN 6.1 G/DL (6.4-8.2); eGFR > 90 ML/MIN
[2018-02-14 06:20] LABS: ANISOCYTOSIS 3+; BASOPHILS % (MANUAL) 1 % (0-1); EOSINOPHILS % (MANUAL) 4 % (0-6); LYMPHOCYTES % (MANUAL) 16 % (21-51); MONOCYTES % (MANUAL) 7 % (2-12); NEUTROPHILS % (MANUAL) 72 % (42-75); PLATELET ESTIMATE DECREASED; TOTAL CELLS COUNTED 100
[2018-02-14 06:21] LABS: STOMATOCYTES FEW
[2018-02-14] MEDS: K and/or MAG REPLACEMENT MC SCH (08:00)
[2018-02-14] MEDS: magnesium Cl slow-release 64mg tablet PO PRN ×2 (09:13→12:51)
[2018-02-14] MEDS: spironolactone 50 MG tablet PO SCH ×2 (09:15→20:50)
[2018-02-14] MEDS: docusate sod 100mg capsule PO SCH ×2 (09:18→20:50)
[2018-02-14] MEDS: pantoprazole 40mg Tablet.DR PO SCH ×2 (09:18→20:50)
[2018-02-14] MEDS: multivitamins, therapeutics tablet PO SCH (09:19)
[2018-02-14] MEDS: lactobacillus rhamnosus 10,000 MMU CELLS/CAPSULE PO SCH ×2 (09:19→20:50)
[2018-02-14] MEDS: folic acid 1mg tablet PO SCH (09:20)
[2018-02-14 10:00] VITALS: BP 122/82
[2018-02-14] MEDS: metoclopramide 5 mg/ml inj IV PRN (16:18)
[2018-02-14 18:00] VITALS: BP 113/71
[2018-02-14] MEDS: normal saline 1000ml 1,000 ML IV SCH (20:50)
[2018-02-14] MEDS ORDERED: CefTRIAXone/D5W-Rocephin 1gm 50 ML IV SCH (21:00)
[2018-02-14 22:00] VITALS: BP 126/78
[2018-02-14] MEDS: ondansetron/PF 4mg/2ml inj IV PRN (22:23)
[2018-02-15] MEDS: lactulose 20gm/30ml cup PO SCH ×2 (00:46→07:43)
[2018-02-15 06:00] VITALS: BP 118/82
[2018-02-15 06:08] LABS: BASOPHILS % (AUTO) 0 % (0-1); EOSINOPHILS # (AUTO) 0.2 X10'3 (0-0.9); EOSINOPHILS % (AUTO) 5.3 % (0-6); HEMATOCRIT 26.5 % (35.0-45.0); HEMOGLOBIN 8.4 g/dl (12.0-16.0); LYMPHOCYTES # (AUTO) 0.5 X10'3 (1.1-4.8); LYMPHOCYTES % (AUTO) 15.2 % (21-51); MEAN CORPUSCULAR HEMOGLOBIN 24.6 PG (27.0-31.0); MEAN CORPUSCULAR HGB CONC 31.9 % (33.0-36.5); MEAN CORPUSCULAR VOLUME 77.1 FL (78-98); MEAN PLATELET VOLUME 10.4 FL (7.4-10.4); MONOCYTES # (AUTO) 0.4 X10'3 (0-0.9); NEUTROPHILS # (AUTO) 2.2 X10'3 (1.8-7.7); NEUTROPHILS % (AUTO) 67.5 % (42-75); RED BLOOD COUNT 3.43 X10'6 (4.20-5.60); RED CELL DISTRIBUTION WIDTH 21.4 % (11.5-14.5); WHITE BLOOD COUNT 3.3 X10'3 (4.5-11.0)
[2018-02-15 06:25] LABS: ALANINE AMINOTRANSFERASE 25 U/L (12-78); ALBUMIN 1.1 G/DL (3.4-5.0); ALBUMIN/GLOBULIN RATIO 0.2 (1.1-1.5); ALKALINE PHOSPHATASE 213 IU/L (46-116); ANION GAP 7 (8-16); ASPARTATE AMINO TRANSFERASE 106 U/L (10-37); BILIRUBIN,TOTAL 1.8 MG/DL (0.1-1.0); BLOOD UREA NITROGEN 3 MG/DL (7-18); CALCIUM 6.6 MG/DL (8.5-10.1); CHLORIDE 101 MMOL/L (99-107); CREATININE 0.43 MG/DL (0.40-0.90); GLUCOSE 90 MG/DL (70-104); MAGNESIUM 1.3 MG/DL (1.5-2.4); SODIUM 135 MMOL/L (135-145); TOTAL PROTEIN 5.7 G/DL (6.4-8.2); eGFR > 90 ML/MIN
[2018-02-15 06:26] LABS: PLATELET COUNT 18 X10'3 (140-440); POTASSIUM 3.5 MMOL/L (3.5-5.1)
[2018-02-15] MEDS: magnesium Cl slow-release 64mg tablet PO PRN (07:39)
[2018-02-15] MEDS: spironolactone 50 MG tablet PO SCH (07:42)
[2018-02-15] MEDS: pantoprazole 40mg Tablet.DR PO SCH (07:43)
[2018-02-15] MEDS: folic acid 1mg tablet PO SCH (07:43)
[2018-02-15] MEDS: docusate sod 100mg capsule PO SCH (07:43)
[2018-02-15] MEDS: lactobacillus rhamnosus 10,000 MMU CELLS/CAPSULE PO SCH (07:43)
[2018-02-15] MEDS: multivitamins, therapeutics tablet PO SCH (07:43)
[2018-02-15] MEDS: K and/or MAG REPLACEMENT MC SCH (07:54)
[2018-02-15] MEDS: metoclopramide 5 mg/ml inj IV PRN (08:43)
[2018-02-15 10:00] VITALS: BP 117/87
== END 2018-02-15 13:15 | disposition home or self-care (01) | DRG 280 ==
LOC: ER 18:26 → ED HOLD 22:10 → ORTHO 4S 02-13 00:20
PROVIDERS: ADMIT Family Medicine; ATTEND Internal Medicine
DX: K70.31 Alcoholic cirrhosis of liver with ascites (principal); D61.818 Other pancytopenia; K76.6 Portal hypertension; E88.09 Other disorders of plasma-protein metabolism, not elsewhere classified; E83.42 Hypomagnesemia; D73.1 Hypersplenism; F10.239 Alcohol dependence with withdrawal, unspecified; F12.90 Cannabis use, unspecified, uncomplicated; F17.210 Nicotine dependence, cigarettes, uncomplicated; Y90.1 Blood alcohol level of 20-39 mg/100 ml; M54.9 Dorsalgia, unspecified; J44.9 Chronic obstructive pulmonary disease, unspecified; B19.20 Unspecified viral hepatitis C without hepatic coma; G43.909 Migraine, unspecified, not intractable, without status migrainosus; G89.29 Other chronic pain; K29.20 Alcoholic gastritis without bleeding; Z59.0 Homelessness; Z98.891 History of uterine scar from previous surgery; Z79.899 Other long term (current) drug therapy
CPT/HCPCS: 36415; 71045; 80053; 80305; 80320; 81001; 81025; 82140; 82948; 83690; 83735; 84100; 85025; 85610; 85730; 87070; 87077; 87088; 87186; 93005; 96365; 96375; 96376; 97116; 97161; 97530; 99285; A4315; J0696; J2060; J2270; J2405; J2560; J2765; J3411; J3480; J3490; J7030

== ENCOUNTER 2019-12-09 16:42 | Emergency (ER) | payer MEDICAID, OTHER ==
[~2019-12-09] VITALS: Ht 154.9 cm; Wt 88.0 kg
[~2019-12-09 16:42] MED LIST changes: -MULT1TAB74 PO
[2019-12-09] MEDS ORDERED: ondansetron/PF 4mg/2ml inj IV ONE (16:55)
[2019-12-09] MEDS ORDERED: morphine 2 MG/ML inj. syringe IV ONE (16:55)
[2019-12-09] MEDS ORDERED: normal saline 1000ML IV soln IVB ONE (16:55)
[2019-12-09 17:36] LABS: BASOPHILS % (AUTO) 0.9 % (0-1); EOSINOPHILS % (AUTO) 1.5 % (0-6); HEMATOCRIT 38.3 % (35.0-45.0); HEMOGLOBIN 12.3 g/dl (12.0-16.0); LYMPHOCYTES # (AUTO) 0.8 X10'3 (1.1-4.8); LYMPHOCYTES % (AUTO) 22.9 % (21-51); MEAN CORPUSCULAR HEMOGLOBIN 25.1 PG (27.0-31.0); MEAN CORPUSCULAR HGB CONC 32.1 g/dL (33.0-36.5); MEAN CORPUSCULAR VOLUME 78.1 FL (78-98); MEAN PLATELET VOLUME 7.3 FL (7.4-10.4); MONOCYTES # (AUTO) 0.4 X10'3 (0-0.9); MONOCYTES % (AUTO) 12.7 % (2-12); NEUTROPHILS # (AUTO) 2.1 X10'3 (1.8-7.7); RED CELL DISTRIBUTION WIDTH 18.4 % (11.5-14.5); WHITE BLOOD COUNT 3.3 X10'3 (4.5-11.0)
[2019-12-09 17:48] LABS: URINE HCG NEGATIVE (NEG)
[2019-12-09 17:54] LABS: CLARITY,URINE CLOUDY (Clear); COLOR,URINE YELLOW (Yellow); GLUCOSE, URINE NEGATIVE (Neg); KETONES,URINE NEGATIVE (Neg); LEUKOCYTE ESTERASE ,URINE TRACE (Neg); NITRITES, URINE NEGATIVE (Neg); OCCULT BLOOD,URINE NEGATIVE (Neg); PH,URINE 7.5 (4.8-8.0); PROTEIN,URINE TRACE mg/dl (Neg)
[2019-12-09 17:57] LABS: PLATELET COUNT 98 X10'3 (140-440)
[2019-12-09 17:59] LABS: UA COLLECTION TYPE FOLEY CATH
[2019-12-09 17:59] LABS: ALANINE AMINOTRANSFERASE 34 U/L (12-78); ALBUMIN 3.4 G/DL (3.4-5.0); ALBUMIN/GLOBULIN RATIO 0.6 (1.1-1.5); ALKALINE PHOSPHATASE 104 IU/L (46-116); ANION GAP 14 (8-16); ASPARTATE AMINO TRANSFERASE 79 U/L (10-37); BLOOD UREA NITROGEN 4 MG/DL (7-18); BUN/CREATININE RATIO 8.2 (6.6-38.0); CALCIUM 8.9 MG/DL (8.5-10.1); CHLORIDE 105 MMOL/L (99-107); CREATININE 0.49 MG/DL (0.40-0.90); ETHANOL 0.148 GM/DL (0.0-0.010); GLUCOSE 88 MG/DL (70-104); LIPASE 154 U/L (73-393); SODIUM 143 MMOL/L (135-145); TOTAL CARBON DIOXIDE 23.7 MMOL/L (24-32); TOTAL PROTEIN 8.8 G/DL (6.4-8.2); eGFR > 90 ML/MIN
[2019-12-09 18:00] LABS: BACTERIA,URINE 4+ /HPF (Neg); MUCUS STRANDS FEW /LPF (Neg); RBC,URINE 0-2 /HPF (0-2); SQUAMOUS EPITHELIAL CELL,UR NONE SEEN /LPF (FEW); WBC,URINE 0-4 /HPF (0-4)
[2019-12-09 18:00] LABS: POTASSIUM 2.9 MMOL/L (3.5-5.1)
[2019-12-09 18:01] LABS: URINE AMPHETAMINE SCREEN POSITIVE (Neg); URINE BARBITUATE SCREEN NEGATIVE (Neg); URINE BENZODIAZEPINES SCREEN NEGATIVE (Neg); URINE CANNABINOID SCREEN NEGATIVE (Neg); URINE COCAINE SCREEN NEGATIVE (Neg); URINE METHADONE SCREEN NEGATIVE (Neg); URINE OPIATE SCREEN NEGATIVE (Neg); URINE PHENCYCLIDINE SCREEN NEGATIVE (Neg)
[2019-12-09] MEDS ORDERED: folic acid 1mg tablet PO ONE (18:05)
[2019-12-09] MEDS ORDERED: thiamine 100mg tablet PO ONE (18:05)
[2019-12-09] MEDS ORDERED: potassium Cl 20 mEq SR tablet PO ONE (18:05)
[2019-12-09 18:46] VITALS: BP 132/76
== END 2019-12-09 19:39 | disposition home or self-care (01) ==
LOC: ER 16:42
DX: R10.84 Generalized abdominal pain (principal); F10.129 Alcohol abuse with intoxication, unspecified; F15.10 Other stimulant abuse, uncomplicated; G43.909 Migraine, unspecified, not intractable, without status migrainosus; J44.9 Chronic obstructive pulmonary disease, unspecified; R19.7 Diarrhea, unspecified; F12.90 Cannabis use, unspecified, uncomplicated; G89.29 Other chronic pain; D64.9 Anemia, unspecified; Z86.19 Personal history of other infectious and parasitic diseases; Z56.0 Unemployment, unspecified
CPT/HCPCS: 36415; 80053; 80305; 80320; 81001; 81025; 83605; 83690; 85025; 87088; 96374; 96375; 99284; J2270; J2405; J7030; 87077; 87186

== ENCOUNTER 2020-05-02 14:59 | Inpatient (IN) | payer MEDICAID, OTHER ==
[~2020-05-02] VITALS: Ht 162.6 cm; Wt 79.5 kg
[2020-05-02 16:04] LABS: BASOPHILS % (AUTO) 0.5 % (0-1); EOSINOPHILS % (AUTO) 0.2 % (0-6); HEMATOCRIT 36.9 % (35.0-45.0); HEMOGLOBIN 12.1 g/dl (12.0-16.0); LYMPHOCYTES # (AUTO) 0.3 X10'3 (1.1-4.8); LYMPHOCYTES % (AUTO) 12.3 % (21-51); MEAN CORPUSCULAR HGB CONC 32.8 g/dL (33.0-36.5); MEAN CORPUSCULAR VOLUME 85.5 FL (78-98); MEAN PLATELET VOLUME 7.5 FL (7.4-10.4); MONOCYTES # (AUTO) 0.2 X10'3 (0-0.9); MONOCYTES % (AUTO) 7.9 % (2-12); NEUTROPHILS # (AUTO) 1.8 X10'3 (1.8-7.7); NEUTROPHILS % (AUTO) 79.1 % (42-75); RED BLOOD COUNT 4.31 X10'6 (4.20-5.60); RED CELL DISTRIBUTION WIDTH 20.1 % (11.5-14.5); WHITE BLOOD COUNT 2.3 X10'3 (4.5-11.0)
[2020-05-02 16:11] LABS: PARTIAL THROMBOPLASTIN TIME 31 SECONDS (22-32)
[2020-05-02 16:14] LABS: ALANINE AMINOTRANSFERASE 35 U/L (12-78); ALBUMIN 3.3 G/DL (3.4-5.0); ALBUMIN/GLOBULIN RATIO 0.7 (1.1-1.5); ALKALINE PHOSPHATASE 101 IU/L (46-116); ANION GAP 12 (8-16); ASPARTATE AMINO TRANSFERASE 73 U/L (10-37); BLOOD UREA NITROGEN 5 MG/DL (7-18); BUN/CREATININE RATIO 11.9 (6.6-38.0); CALCIUM 7.4 MG/DL (8.5-10.1); CHLORIDE 101 MMOL/L (99-107); CREATININE 0.42 MG/DL (0.40-0.90); ETHANOL 0.243 GM/DL (0.0-0.010); GLUCOSE 94 MG/DL (70-104); LIPASE 150 U/L (73-393); MAGNESIUM 1.5 MG/DL (1.5-2.4); SODIUM 140 MMOL/L (135-145); TOTAL CARBON DIOXIDE 27.1 MMOL/L (24-32); TOTAL PROTEIN 8.2 G/DL (6.4-8.2); eGFR > 90 ML/MIN
[2020-05-02 16:19] LABS: POTASSIUM 2.4 MMOL/L (3.5-5.1)
[2020-05-02 16:25] LABS: PLATELET COUNT 24 X10'3 (140-440)
[2020-05-02] MEDS ORDERED: potassium Cl 10 mEq/100mL bag IV ONE (16:25)
[2020-05-02] MEDS ORDERED: POTASSIUM BICARB 20meq eff tab 20 MEQ TABLET.EFF PO ONE (16:25)
[2020-05-02] MEDS ORDERED: magnesium 2GM in 50ml NS 50 ML IV ONE (16:25)
[2020-05-02] MEDS ORDERED: thiamine 100mg/ml 2ml inj. IV ONE ×2 (16:25→16:50)
[2020-05-02 16:27] LABS: CLARITY,URINE TURBID (Clear); COLOR,URINE YELLOW (Yellow); GLUCOSE, URINE NEGATIVE (Neg); KETONES,URINE 15 mg/dl (Neg); LEUKOCYTE ESTERASE ,URINE TRACE (Neg); NITRITES, URINE POSITIVE (Neg); OCCULT BLOOD,URINE LARGE (Neg); PH,URINE 6.5 (4.8-8.0); PROTEIN,URINE >=300 mg/dl (Neg); URINE HCG NEGATIVE (NEG); UROBILINOGEN,URINE >=8.0 E.U/dL (0.2-1.0)
[2020-05-02] MEDS ORDERED: normal saline 1000ml 1,000 ML IV ONE (16:30)
[2020-05-02 16:39] LABS: UA COLLECTION TYPE STRAIGHT CATH
[2020-05-02 16:41] LABS: BACTERIA,URINE 4+ /HPF (Neg); MUCUS STRANDS NONE SEEN /LPF (Neg); RBC,URINE 20-50 /HPF (0-2); SQUAMOUS EPITHELIAL CELL,UR FEW /LPF (FEW); WBC CLUMPS,URINE FEW /HPF (NEGATIVE)
[2020-05-02 16:42] LABS: URINE AMPHETAMINE SCREEN POSITIVE (Neg); URINE BARBITUATE SCREEN NEGATIVE (Neg); URINE BENZODIAZEPINES SCREEN POSITIVE (Neg); URINE CANNABINOID SCREEN POSITIVE (Neg); URINE COCAINE SCREEN NEGATIVE (Neg); URINE METHADONE SCREEN NEGATIVE (Neg); URINE OPIATE SCREEN NEGATIVE (Neg); URINE PHENCYCLIDINE SCREEN NEGATIVE (Neg)
[2020-05-02] MEDS ORDERED: NO HOME MEDS (16:46)
[2020-05-02] MEDS ORDERED: morphine 2 MG/ML inj. syringe IV PRN ×2 (16:50)
[2020-05-02] MEDS ORDERED: LORazepam 2 mg/ml vial IV PRN (16:50)
[2020-05-02] MEDS ORDERED: haloperidol lactate 5mg/ml inj IM PRN (16:50)
[2020-05-02] MEDS ORDERED: dicyclomine 10 MG capsule PO PRN (16:50)
[2020-05-02] MEDS ORDERED: mag hydrox/Alum hydrox/simeth 30ml oral suspension PO PRN ×2 (16:50)
[2020-05-02] MEDS ORDERED: magnesium hydroxide 30ml (MOM) UD suspension PO PRN (16:50)
[2020-05-02] MEDS ORDERED: acetaminophen 325mg tablet PO PRN ×2 (16:50)
[2020-05-02] MEDS ORDERED: dextrose 50%-water 50ml dispensing syringe IV PRN (16:50)
[2020-05-02] MEDS ORDERED: haloperidol 5mg tablet PO PRN (16:50)
[2020-05-02] MEDS ORDERED: loperamide 2mg capsule PO PRN ×2 (16:50)
[2020-05-02 18:29] LABS: ANISOCYTOSIS 3+; PLATELET ESTIMATE DECREASED; TOTAL CELLS COUNTED 100
[2020-05-02 19:35] VITALS: BP 149/96
[2020-05-02] MEDS: ondansetron/PF 4mg/2ml inj IV PRN (19:50)
[2020-05-02 20:00] VITALS: BP 150/98
[2020-05-02] MEDS: HYDROcodone/acetaminophen 10/325mg tab PO PRN (20:58)
[2020-05-03] VITALS (8 sets, daily range): BP systolic 149–171; BP diastolic 85–117
--- NOTE | 2020-05-03 02:30 | NUR ---
Unable to dart pt d/t pt's clinical condition. Pt is confused and restless; A/o x 1 upon admission to unit.
[2020-05-03] MEDS: HYDROcodone/acetaminophen 10/325mg tab PO PRN ×2 (02:50→09:35)
[2020-05-03 06:15] LABS: BASOPHILS % (AUTO) 0.4 % (0-1); EOSINOPHILS % (AUTO) 0 % (0-6); HEMOGLOBIN 11.9 g/dl (12.0-16.0); LYMPHOCYTES # (AUTO) 0.2 X10'3 (1.1-4.8); LYMPHOCYTES % (AUTO) 5.3 % (21-51); MEAN CORPUSCULAR HEMOGLOBIN 28.6 PG (27.0-31.0); MEAN CORPUSCULAR HGB CONC 33.1 g/dL (33.0-36.5); MEAN CORPUSCULAR VOLUME 86.5 FL (78-98); MEAN PLATELET VOLUME 7.9 FL (7.4-10.4); MONOCYTES # (AUTO) 0.3 X10'3 (0-0.9); MONOCYTES % (AUTO) 9.9 % (2-12); NEUTROPHILS # (AUTO) 2.5 X10'3 (1.8-7.7); NEUTROPHILS % (AUTO) 84.4 % (42-75); RED BLOOD COUNT 4.16 X10'6 (4.20-5.60); RED CELL DISTRIBUTION WIDTH 19.8 % (11.5-14.5); WHITE BLOOD COUNT 2.9 X10'3 (4.5-11.0)
--- NOTE | 2020-05-03 06:16 | NUR ---
Problems reprioritized. Patient report given, questions answered & plan of care reviewed with SHANTEL Lincoln.
--- NOTE | 2020-05-03 06:23 | NUR ---
Patient in room PCU 3017. I have received report from SHANTEL Ogden and had the opportunity to ask questions and assume patient care.
[2020-05-03 06:24] LABS: ALANINE AMINOTRANSFERASE 26 U/L (12-78); ALBUMIN 3.1 G/DL (3.4-5.0); ALBUMIN/GLOBULIN RATIO 0.6 (1.1-1.5); ALKALINE PHOSPHATASE 94 IU/L (46-116); ANION GAP 15 (8-16); ASPARTATE AMINO TRANSFERASE 71 U/L (10-37); BILIRUBIN,TOTAL 2.2 MG/DL (0.1-1.0); BLOOD UREA NITROGEN 4 MG/DL (7-18); BUN/CREATININE RATIO 9.5 (6.6-38.0); CALCIUM 7.3 MG/DL (8.5-10.1); CHLORIDE 101 MMOL/L (99-107); CREATININE 0.42 MG/DL (0.40-0.90); GLUCOSE 87 MG/DL (70-104); SODIUM 141 MMOL/L (135-145); TOTAL CARBON DIOXIDE 25.5 MMOL/L (24-32); eGFR > 90 ML/MIN
[2020-05-03 06:29] LABS: POTASSIUM 2.5 MMOL/L (3.5-5.1)
--- NOTE | 2020-05-03 06:39 | NUR ---
New orders from [facility] to place pt on K+/Mg+2 protocol
[2020-05-03 06:40] LABS: PLATELET COUNT 19 X10'3 (140-440)
[2020-05-03] MEDS ORDERED: magnesium Cl slow-release 64mg tablet PO PRN (06:40)
[2020-05-03] MEDS ORDERED: potassium Cl 20 mEq SR tablet PO PRN (06:40)
[2020-05-03] MEDS ORDERED: potassium CL 10mEq/100ml bag 100 ML IV PRN ×2 (06:40)
[2020-05-03] MEDS ORDERED: magnesium 4gm in 100ml NS 100 ML IV PRN (06:40)
[2020-05-03] MEDS ORDERED: magnesium 2GM in 50ml NS 50 ML IV PRN (06:40)
[2020-05-03] MEDS: K and/or MAG REPLACEMENT MC SCH ×2 (07:04→20:00)
[2020-05-03] MEDS: potassium Cl 20 mEq SR tablet PO PRN ×3 (07:11→15:33)
[2020-05-03] MEDS: multivitamins, therapeutics tablet PO SCH (07:11)
[2020-05-03] MEDS: thiamine 100mg tablet PO SCH (07:11)
[2020-05-03] MEDS: folic acid 1mg tablet PO SCH (07:11)
[2020-05-03 07:25] LABS: ANISOCYTOSIS 2+; PLATELET ESTIMATE DECREASED; TOTAL CELLS COUNTED 100
--- NOTE | 2020-05-03 09:46 | NUR ---
New orders for PT eval from [facility]
[2020-05-03] MEDS: spironolactone 50 MG tablet PO SCH (10:22)
[2020-05-03] MEDS: furosemide 40mg tablet PO SCH (10:22)
[2020-05-03] MEDS: ondansetron/PF 4mg/2ml inj IV PRN ×2 (11:20→19:16)
--- NOTE | 2020-05-03 11:56 | NUR ---
PAGER ID: [phone] MESSAGE: [id number] - Destini Kuo pt feeling nauseous, Zofran ineffective, may pt receive another rx? -Latonia [phone]
--- NOTE | 2020-05-03 11:56 | NUR ---
[facility]
--- NOTE | 2020-05-03 12:11 | NUR ---
Patient in room PCU 3017. I have received report from SHANTEL Vargas and had the opportunity to ask questions and assume patient care.
[2020-05-03] MEDS: propranolol 10mg tablet PO SCH ×2 (12:14→21:03)
[2020-05-03] MEDS: metoclopramide 5 mg/ml inj IV PRN (12:14)
--- NOTE | 2020-05-03 13:51 | NUR ---
agree with Alicia FUNES's, assessment
--- NOTE | 2020-05-03 18:10 | NUR ---
Problems reprioritized. Patient report given, questions answered & plan of care reviewed with SHANTEL Neri.
[2020-05-04] VITALS (7 sets, daily range): BP systolic 100–171; BP diastolic 59–117
[2020-05-04 06:19] LABS: HEMATOCRIT 41.2 % (35.0-45.0); HEMOGLOBIN 13.7 g/dl (12.0-16.0); MEAN CORPUSCULAR HEMOGLOBIN 28.7 PG (27.0-31.0); MEAN CORPUSCULAR HGB CONC 33.2 g/dL (33.0-36.5); MEAN CORPUSCULAR VOLUME 86.6 FL (78-98); MEAN PLATELET VOLUME 7.8 FL (7.4-10.4); RED BLOOD COUNT 4.76 X10'6 (4.20-5.60); RED CELL DISTRIBUTION WIDTH 19.5 % (11.5-14.5)
[2020-05-04 06:23] LABS: PLATELET COUNT 56 X10'3 (140-440)
--- NOTE | 2020-05-04 06:24 | NUR ---
Patient in room PCU 3017. I have received report from Halle FUNES and had the opportunity to ask questions and assume patient care.
[2020-05-04 06:40] LABS: ALANINE AMINOTRANSFERASE 29 U/L (12-78); ALBUMIN/GLOBULIN RATIO 0.6 (1.1-1.5); ALKALINE PHOSPHATASE 103 IU/L (46-116); ANION GAP 10 (8-16); ASPARTATE AMINO TRANSFERASE 63 U/L (10-37); BLOOD UREA NITROGEN 13 MG/DL (7-18); CALCIUM 8.4 MG/DL (8.5-10.1); CHLORIDE 97 MMOL/L (99-107); CREATININE 0.62 MG/DL (0.40-0.90); GLUCOSE 137 MG/DL (70-104); MAGNESIUM 1.9 MG/DL (1.5-2.4); POTASSIUM 4.2 MMOL/L (3.5-5.1); SODIUM 134 MMOL/L (135-145); TOTAL CARBON DIOXIDE 27.1 MMOL/L (24-32); TOTAL PROTEIN 7.8 G/DL (6.4-8.2); eGFR > 90 ML/MIN
[2020-05-04 06:48] LABS: ANISOCYTOSIS 2+; PLATELET ESTIMATE DECREASED; POLYCHROMASIA 1+; TOTAL CELLS COUNTED 100
[2020-05-04] MEDS: propranolol 10mg tablet PO SCH ×3 (07:26→22:06)
[2020-05-04] MEDS: thiamine 100mg tablet PO SCH (07:26)
[2020-05-04] MEDS: multivitamins, therapeutics tablet PO SCH (07:26)
[2020-05-04] MEDS: folic acid 1mg tablet PO SCH (07:26)
[2020-05-04] MEDS: furosemide 40mg tablet PO SCH (07:26)
--- NOTE | 2020-05-04 07:45 | NUR ---
Sent a page to Dr Huber arana PAGER ID: [phone] MESSAGE: Alessandra FUNES [phone] K Kuo, pt increasingly confused, pulled out 2 IVs, getting up out of bed by self, fall risk, i think pt would benefit from sitter, thanks Addendum: 05/04/20 at 0747 by Oenida Mccall RN Talked to Dr Ngo via telephone, received orders for a sitter and for Ativan PO, will continue to monitor closely
[2020-05-04] MEDS ORDERED: LORazepam 1 MG tablet PO PRN ×2 (07:50→16:50)
[2020-05-04] MEDS: LORazepam 2 mg/ml vial IV PRN ×2 (07:56→16:16)
[2020-05-04] MEDS: K and/or MAG REPLACEMENT MC SCH ×2 (08:00→20:00)
[2020-05-04] MEDS: spironolactone 50 MG tablet PO SCH (08:47)
--- NOTE | 2020-05-04 10:37 | NUR ---
unable to perform nursing malnutrition risk screening on this patient due to altered mental status, will continue to monitor.
--- NOTE | 2020-05-04 11:40 | NUR ---
Dr Ngo at bedside, MD is going to start the patient on lactulose, MD is aware that angio didnt see any fluid for para, will continue to monitor the patient closely.
[2020-05-04] MEDS ORDERED: CefTRIAXone/D5W-Rocephin 1gm 50 ML IV SCH (12:00)
[2020-05-04] MEDS ORDERED: iohexol 300mg/ml 100ml inj. ONE (12:25)
--- NOTE | 2020-05-04 12:49 | NUR ---
Unable to obtain orthostatic vitals as patient is refusing to participate and is confused at this time.
[2020-05-04] MEDS: lactulose 20gm/30ml cup PO SCH ×2 (14:00→22:06)
--- NOTE | 2020-05-04 14:43 | NUR ---
Patient refusing oral medications, refusing lactulose at this time and is still very sleepy, will continue to monitor closely.
--- NOTE | 2020-05-04 16:00 | NUR ---
Sent a page to Dr Ngo regarding pts disposition PAGER ID: [phone] MESSAGE: Alessandra FUNES [phone] JASMINE James still somnolent/uncooperative, refusing lactulose, will continue to encourage compliance with plan of care. Addendum: 05/04/20 at 1603 by Oneida Mccall RN Spoke with Dr Ngo via telephone, received orders to place NGT and possibly use soft wrist restraints, will continue to monitor the patient closely.
--- NOTE | 2020-05-04 16:37 | NUR ---
Sent a page to Dr Huber arana PAGER ID: [phone] MESSAGE: Alessandra FUNES [phone] K Ayaan, CT abd showed small bowel obstruction, would you prefer a rectal tube or NGT and if NGT do you want it to suction? thanks
[2020-05-04] MEDS ORDERED: LIDOcaine 2% 10ml TOPICAL JELLY (Urojet) TP ONE (16:45)
--- NOTE | 2020-05-04 17:35 | NUR ---
Called patients daughter Lakia and updated her on the patients current status and the plan of care going forward. Relayed to Laurajesus that I was going to page the Dr and have her phone number attached so that he could give her an update either today or tomorrow.
--- NOTE | 2020-05-04 17:40 | NUR ---
Sent a page to Dr Huber arana PAGER ID: [phone] MESSAGE: Alessandra FUNES [phone] Lashay Kuo, called pts daughter (21yo) and educated on pts disposition and code status, Lakia would like to receive a call from you @ [phone], thank you! Addendum: 05/04/20 at 1746 by Oneida Mccall RN Spoke to Dr Ngo via telephone, Dr Ngo stated he will give patients daughter a call, will continue to monitor closely.
--- NOTE | 2020-05-04 18:14 | NUR ---
Problems reprioritized. Patient report given, questions answered & plan of care reviewed with Valerie FUNES.
--- NOTE | 2020-05-04 18:14 | NUR ---
Patient in room PCU 3027. I have received report from Alessandra FUNES and had the opportunity to ask questions and assume patient care.
[2020-05-04] MEDS: diatr meglu/diatrizoate 30ml oral sol.-(3 dose) bottle PO SCH (22:07)
[2020-05-05] MEDS: piperacillin/tazo 3.375gm/50ml 50 ML IV SCH ×3 (00:11→15:05)
[2020-05-05 02:00] VITALS: BP 113/79
[2020-05-05] MEDS: LORazepam 2 mg/ml vial IV PRN (02:58)
[2020-05-05] MEDS: lactulose 20gm/30ml cup PO SCH ×4 (02:58→20:03)
[2020-05-05 05:18] LABS: HEMOGLOBIN 12.9 g/dl (12.0-16.0); LYMPHOCYTES # (AUTO) 0.5 X10'3 (1.1-4.8); MONOCYTES # (AUTO) 0.7 X10'3 (0-0.9); RED CELL DISTRIBUTION WIDTH 19.9 % (11.5-14.5); WHITE BLOOD COUNT 2.6 X10'3 (4.5-11.0)
[2020-05-05 05:20] LABS: BASOPHILS % (AUTO) 0.3 % (0-1); EOSINOPHILS % (AUTO) 1.4 % (0-6); HEMATOCRIT 39.3 % (35.0-45.0); LYMPHOCYTES % (AUTO) 19.8 % (21-51); MEAN CORPUSCULAR HEMOGLOBIN 28.3 PG (27.0-31.0); MEAN CORPUSCULAR HGB CONC 32.9 g/dL (33.0-36.5); MEAN CORPUSCULAR VOLUME 86.2 FL (78-98); MEAN PLATELET VOLUME 7.8 FL (7.4-10.4); MONOCYTES % (AUTO) 25.6 % (2-12); NEUTROPHILS # (AUTO) 1.4 X10'3 (1.8-7.7); NEUTROPHILS % (AUTO) 52.9 % (42-75); PLATELET COUNT 59 X10'3 (140-440); RED BLOOD COUNT 4.56 X10'6 (4.20-5.60)
[2020-05-05 05:24] LABS: ALANINE AMINOTRANSFERASE 25 U/L (12-78); ALBUMIN 2.7 G/DL (3.4-5.0); ALBUMIN/GLOBULIN RATIO 0.6 (1.1-1.5); ALKALINE PHOSPHATASE 80 IU/L (46-116); ANION GAP 10 (8-16); ASPARTATE AMINO TRANSFERASE 49 U/L (10-37); BILIRUBIN,TOTAL 1.9 MG/DL (0.1-1.0); BLOOD UREA NITROGEN 17 MG/DL (7-18); BUN/CREATININE RATIO 26.6 (6.6-38.0); CALCIUM 8.4 MG/DL (8.5-10.1); CHLORIDE 100 MMOL/L (99-107); CREATININE 0.64 MG/DL (0.40-0.90); GLUCOSE 110 MG/DL (70-104); MAGNESIUM 1.8 MG/DL (1.5-2.4); SODIUM 140 MMOL/L (135-145); TOTAL CARBON DIOXIDE 30.1 MMOL/L (24-32); TOTAL PROTEIN 7.1 G/DL (6.4-8.2); eGFR > 90 ML/MIN
[2020-05-05 06:00] VITALS: BP 125/48
--- NOTE | 2020-05-05 06:07 | NUR ---
Problems reprioritized. Patient report given, questions answered & plan of care reviewed with Alessandra FUNES.
--- NOTE | 2020-05-05 06:10 | NUR ---
Patient in room PCU 3027. I have received report from Valerie FUNES and had the opportunity to ask questions and assume patient care.
[2020-05-05] MEDS ORDERED: POTASSIUM BICARB 20meq eff tab 20 MEQ TABLET.EFF PO PRN (06:35)
[2020-05-05 07:04] LABS: TOTAL CELLS COUNTED 100
[2020-05-05 07:05] LABS: ANISOCYTOSIS 2+; PLATELET ESTIMATE DECREASED; POLYCHROMASIA FEW
[2020-05-05] MEDS: thiamine 100mg tablet PO SCH (07:22)
[2020-05-05] MEDS: furosemide 40mg tablet PO SCH (07:22)
[2020-05-05] MEDS: folic acid 1mg tablet PO SCH (07:22)
[2020-05-05] MEDS: multivitamins, therapeutics tablet PO SCH (07:22)
[2020-05-05] MEDS: propranolol 10mg tablet PO SCH ×3 (07:22→20:03)
[2020-05-05] MEDS: diatr meglu/diatrizoate 30ml oral sol.-(3 dose) bottle PO SCH ×2 (07:22→12:57)
[2020-05-05] MEDS: POTASSIUM BICARB 20meq eff tab 20 MEQ TABLET.EFF PO PRN ×3 (07:23→20:03)
[2020-05-05] MEDS: K and/or MAG REPLACEMENT MC SCH ×2 (08:19→20:00)
[2020-05-05] MEDS: spironolactone 50 MG tablet PO SCH (08:23)
--- NOTE | 2020-05-05 09:36 | NUR ---
Patient refusing/unable to participate at this time to obtain orthostatic vitals. Will continue to assess and intervene as needed.
--- NOTE | 2020-05-05 10:56 | NUR ---
Spoke with Dr Ngo, received orders for NS @ 100ml/hr and to decrease the lactulose to 20grams q6hrs, will continue to monitor the patient closely.
--- NOTE | 2020-05-05 10:59 | NUR ---
Called down to CT to find out when they would perform the CT abd/pelvis on this patient, no one picked up, will try again later.
[2020-05-05 11:00] VITALS: BP 112/72
[2020-05-05 11:02] LABS: PARTIAL THROMBOPLASTIN TIME 30 SECONDS (22-32)
[2020-05-05] MEDS: normal saline 1000ml 1,000 ML IV SCH ×2 (11:03→21:32)
--- NOTE | 2020-05-05 11:30 | NUR ---
Spoke to patients daughter, Lakia, via telephone and updated her on the plan of care.
--- NOTE | 2020-05-05 12:14 | NUR ---
Called down to CT to find out when they would perform the CT abd/pelvis on this patient, no one picked up, sent a page to CT to find out time, will continue to monitor pt closely.
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
--- NOTE | 2020-05-05 14:27 | NUR ---
Sent a page to Dr Ngo PAGER ID: [phone] MESSAGE: Alessandra FUNES [phone] J[address]INE James CT abd/pelvis report available, no obstruction but no changes, thanks!
[2020-05-05 15:00] VITALS: BP 120/60
--- NOTE | 2020-05-05 16:53 | NUR ---
Spoke to Dr Huber MD aware of CT abd results, will keep patient on low int suction on NGT, CT head ordered, will continue to monitor patient closely.
[2020-05-05] MEDS: HYDROcodone/acetaminophen 5mg/325mg tablet PO PRN (17:40)
[2020-05-05 18:00] VITALS: BP 125/50
--- NOTE | 2020-05-05 18:20 | NUR ---
Problems reprioritized. Patient report given, questions answered & plan of care reviewed with Sami FUNES.
[2020-05-05] MEDS: metoclopramide 5 mg/ml inj IV PRN (20:03)
[2020-05-05 22:00] VITALS: BP 98/66
[2020-05-06] VITALS (8 sets, daily range): BP systolic 101–142; BP diastolic 70–94
[2020-05-06] MEDS: piperacillin/tazo 3.375gm/50ml 50 ML IV SCH ×3 (00:39→15:29)
[2020-05-06] MEDS: lactulose 20gm/30ml cup PO SCH ×4 (03:30→22:49)
[2020-05-06 05:19] LABS: EOSINOPHILS # (AUTO) 0.1 X10'3 (0-0.9); HEMOGLOBIN 11.5 g/dl (12.0-16.0); LYMPHOCYTES # (AUTO) 0.7 X10'3 (1.1-4.8); MONOCYTES # (AUTO) 0.7 X10'3 (0-0.9); NEUTROPHILS # (AUTO) 1.6 X10'3 (1.8-7.7); NEUTROPHILS % (AUTO) 51.2 % (42-75); WHITE BLOOD COUNT 3.1 X10'3 (4.5-11.0)
[2020-05-06 05:23] LABS: BASOPHILS % (AUTO) 0.4 % (0-1); EOSINOPHILS % (AUTO) 3.6 % (0-6); HEMATOCRIT 34.9 % (35.0-45.0); LYMPHOCYTES % (AUTO) 21.5 % (21-51); MEAN CORPUSCULAR HEMOGLOBIN 28.7 PG (27.0-31.0); MEAN CORPUSCULAR VOLUME 87.1 FL (78-98); MEAN PLATELET VOLUME 7.1 FL (7.4-10.4); MONOCYTES % (AUTO) 23.3 % (2-12); PLATELET COUNT 54 X10'3 (140-440); RED CELL DISTRIBUTION WIDTH 20.3 % (11.5-14.5)
[2020-05-06 05:28] LABS: PARTIAL THROMBOPLASTIN TIME 31 SECONDS (22-32)
[2020-05-06 05:36] LABS: ALANINE AMINOTRANSFERASE 23 U/L (12-78); ALBUMIN 2.4 G/DL (3.4-5.0); ALBUMIN/GLOBULIN RATIO 0.6 (1.1-1.5); ALKALINE PHOSPHATASE 74 IU/L (46-116); ANION GAP 0 (8-16); ASPARTATE AMINO TRANSFERASE 46 U/L (10-37); BILIRUBIN,TOTAL 1.4 MG/DL (0.1-1.0); BLOOD UREA NITROGEN 8 MG/DL (7-18); BUN/CREATININE RATIO 12.3 (6.6-38.0); CALCIUM 7.7 MG/DL (8.5-10.1); CHLORIDE 102 MMOL/L (99-107); CREATININE 0.65 MG/DL (0.40-0.90); GLUCOSE 97 MG/DL (70-104); MAGNESIUM 1.7 MG/DL (1.5-2.4); POTASSIUM 3.5 MMOL/L (3.5-5.1); SODIUM 136 MMOL/L (135-145); TOTAL CARBON DIOXIDE 33.7 MMOL/L (24-32); TOTAL PROTEIN 6.3 G/DL (6.4-8.2); eGFR > 90 ML/MIN
--- NOTE | 2020-05-06 06:12 | NUR ---
Patient in room PCU 3027. I have received report from Sami FUNES and had the opportunity to ask questions and assume patient care.
[2020-05-06 06:57] LABS: TOTAL CELLS COUNTED 100
[2020-05-06 06:58] LABS: ANISOCYTOSIS 3+; PLATELET ESTIMATE DECREASED
[2020-05-06 06:59] LABS: POLYCHROMASIA FEW
[2020-05-06] MEDS: normal saline 1000ml 1,000 ML IV SCH ×3 (07:45→22:51)
[2020-05-06] MEDS: propranolol 10mg tablet PO SCH ×3 (07:49→22:49)
[2020-05-06] MEDS: multivitamins, therapeutics tablet PO SCH (07:49)
[2020-05-06] MEDS: folic acid 1mg tablet PO SCH (07:49)
[2020-05-06] MEDS: spironolactone 50 MG tablet PO SCH (07:49)
[2020-05-06] MEDS: furosemide 40mg tablet PO SCH (07:49)
[2020-05-06] MEDS: thiamine 100mg tablet PO SCH (07:49)
[2020-05-06] MEDS: K and/or MAG REPLACEMENT MC SCH ×2 (08:00→19:13)
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
[2020-05-06] MEDS ORDERED: phytonadione inj. 3 MG in normal saline 100ml IV soln 100 ML IV ONE (09:45)
[2020-05-06] MEDS: HYDROcodone/acetaminophen 5mg/325mg tablet PO PRN (15:24)
[2020-05-06] MEDS ORDERED: LORazepam 1 MG tablet PO PRN (16:50)
[2020-05-06] MEDS ORDERED: LORazepam 2 mg/ml vial IV PRN (16:50)
--- NOTE | 2020-05-06 17:25 | NUR ---
Sent a page to Dr Ngo PAGER ID: [phone] MESSAGE: Alessandra FUNES [phone] S Joss, I am worried about this patients respiratory status, she is now up to 5LNC, sats 88-92%, still feeling very SOB, wheezes/crackles in lungs, RT saw her for breathing tx, i think she is worsening, please advise. Addendum: 05/06/20 at 1728 by Oneida Mccall RN disregard this note, wrong pt
--- NOTE | 2020-05-06 18:42 | NUR ---
Problems reprioritized. Patient report given, questions answered & plan of care reviewed with Guera FUNES.
[2020-05-06] MEDS: HYDROcodone/acetaminophen 10/325mg tab PO PRN (23:27)
[2020-05-07] VITALS (8 sets, daily range): BP systolic 113–167; BP diastolic 71–100
[2020-05-07] MEDS: lactulose 20gm/30ml cup PO SCH ×4 (02:00→20:34)
--- NOTE | 2020-05-07 02:19 | NUR ---
Patient stated she has poop 5-6 times tonight. Confirm with sitter. Lactulose not given, patient also refused it.
[2020-05-07 06:09] LABS: BASOPHILS % (AUTO) 0.6 % (0-1); EOSINOPHILS # (AUTO) 0.1 X10'3 (0-0.9); EOSINOPHILS % (AUTO) 2.6 % (0-6); HEMATOCRIT 32.8 % (35.0-45.0); HEMOGLOBIN 10.8 g/dl (12.0-16.0); LYMPHOCYTES # (AUTO) 0.7 X10'3 (1.1-4.8); LYMPHOCYTES % (AUTO) 26.9 % (21-51); MEAN CORPUSCULAR HGB CONC 33.1 g/dL (33.0-36.5); MEAN CORPUSCULAR VOLUME 87.7 FL (78-98); MONOCYTES # (AUTO) 0.6 X10'3 (0-0.9); MONOCYTES % (AUTO) 23.8 % (2-12); NEUTROPHILS # (AUTO) 1.2 X10'3 (1.8-7.7); NEUTROPHILS % (AUTO) 46.1 % (42-75); PLATELET COUNT 54 X10'3 (140-440); RED BLOOD COUNT 3.74 X10'6 (4.20-5.60); RED CELL DISTRIBUTION WIDTH 19.7 % (11.5-14.5); WHITE BLOOD COUNT 2.7 X10'3 (4.5-11.0)
[2020-05-07 06:16] LABS: PARTIAL THROMBOPLASTIN TIME 34 SECONDS (22-32)
[2020-05-07 06:28] LABS: ALANINE AMINOTRANSFERASE 25 U/L (12-78); ALBUMIN 2.4 G/DL (3.4-5.0); ALBUMIN/GLOBULIN RATIO 0.6 (1.1-1.5); ALKALINE PHOSPHATASE 91 IU/L (46-116); ANION GAP 7 (8-16); ASPARTATE AMINO TRANSFERASE 53 U/L (10-37); BILIRUBIN,TOTAL 1.3 MG/DL (0.1-1.0); BLOOD UREA NITROGEN 5 MG/DL (7-18); BUN/CREATININE RATIO 9.6 (6.6-38.0); CALCIUM 7.6 MG/DL (8.5-10.1); CHLORIDE 99 MMOL/L (99-107); CREATININE 0.52 MG/DL (0.40-0.90); GLUCOSE 96 MG/DL (70-104); MAGNESIUM 1.1 MG/DL (1.5-2.4); POTASSIUM 3.2 MMOL/L (3.5-5.1); SODIUM 132 MMOL/L (135-145); TOTAL CARBON DIOXIDE 26.3 MMOL/L (24-32); TOTAL PROTEIN 6.2 G/DL (6.4-8.2); eGFR > 90 ML/MIN
--- NOTE | 2020-05-07 06:30 | NUR ---
Problems reprioritized. Patient report given, questions answered & plan of care reviewed with Deyanira FUNES.
--- NOTE | 2020-05-07 06:41 | NUR ---
Patient in room PCU 3012. I have received report from Guera FUNES and had the opportunity to ask questions and assume patient care.
--- NOTE | 2020-05-07 06:42 | NUR ---
Problems reprioritized. Patient report given, questions answered & plan of care reviewed with Yulia Ortiz
[2020-05-07] MEDS: K and/or MAG REPLACEMENT MC SCH ×2 (08:00→20:09)
[2020-05-07 08:01] LABS: TOTAL CELLS COUNTED 100
[2020-05-07 08:02] LABS: ANISOCYTOSIS 2+; PLATELET ESTIMATE DECREASED
--- NOTE | 2020-05-07 09:11 | NUR ---
Paged Dr. Ngo Re: Destini Kuo RM [id number]. Pts k is 3.2 and mag 1.2. May we have replacement orders? Thank you Yulia FUNES [phone] Addendum: 05/07/20 at 0912 by Yulia Selby RN New orders to add protocol orders for replacement.
[2020-05-07] MEDS ORDERED: potassium Cl 20 mEq SR tablet PO PRN (09:15)
[2020-05-07] MEDS: CefTRIAXone/D5W-Rocephin 1gm 50 ML IV SCH (09:24)
[2020-05-07] MEDS: magnesium Cl slow-release 64mg tablet PO PRN ×2 (09:25→15:11)
[2020-05-07] MEDS: furosemide 40mg tablet PO SCH (09:25)
[2020-05-07] MEDS: spironolactone 50 MG tablet PO SCH (09:26)
[2020-05-07] MEDS: folic acid 1mg tablet PO SCH (09:26)
[2020-05-07] MEDS: thiamine 100mg tablet PO SCH (09:26)
[2020-05-07] MEDS: multivitamins, therapeutics tablet PO SCH (09:27)
[2020-05-07] MEDS: propranolol 10mg tablet PO SCH ×3 (09:27→20:35)
[2020-05-07] MEDS: potassium Cl 20 mEq SR tablet PO PRN ×3 (09:27→20:35)
--- NOTE | 2020-05-07 11:46 | NUR ---
Dr. Ngo at bedside with patient and nurse.MD orders are to advance diet as tolerated to renal/ Heart Healthy and obtain a BSS before eating. MD is aware of Left sided weakness and is looking into other studies. Will continue to monitor.
[2020-05-07] MEDS ORDERED: iohexol 350MG/ML 100ml bottle IV ONE (13:25)
--- NOTE | 2020-05-07 13:44 | NUR ---
Patient is in wheelchair, SL headed to CT and MRI.
--- NOTE | 2020-05-07 13:46 | NUR ---
Paged Dr. Ngo Re: Destini Kuo. Pt requesting removal of FC. May we remove matson catheter? Please advise Yulia Cifuentes RN [phone] Addendum: 05/07/20 at 1418 by Yulia Selby RN Dr. Ngo is ok with Matson coming out. Will monitor when patient is able to urinate.
--- NOTE | 2020-05-07 14:18 | NUR ---
Patient FC was taken out. Pt tolerated it well. Will continue to monitor.
--- NOTE | 2020-05-07 15:05 | NUR ---
Initial: Patient admitted with possible CVA, hepatic encephalopathy (improved her MD note), bowel distention (improved), UTI, history of HTN, EtOH dependence and meth use. Receiving thiamine, folic acid, MVI, and lactulose. On full liquid diet day 5. Some confusion. Seen by FELT WASHING MACHINE TENDER this morning, FELT WASHING MACHINE TENDER reports pt more alert and swallowing better, recommends upgrade to mechanical soft chopped food and thin liquids, pending advancement d/w bedside RN. Recommend: 1. advance diet as medically indicated to chop all/soft to chew diet per recommendations by FELT WASHING MACHINE TENDER to have mechanical soft chop all diet. 2. continue thiamine, folic acid, MVI 3. bowel care as needed 4. weight per rx Addendum: 05/07/20 at [address] Amended: Links added.
[2020-05-07] MEDS: normal saline 1000ml 1,000 ML IV SCH ×2 (15:08→23:00)
[2020-05-07] MEDS: HYDROcodone/acetaminophen 10/325mg tab PO PRN (15:48)
--- NOTE | 2020-05-07 18:14 | NUR ---
Patient in room PCU 3012. I have received report from Yulia FUNES and had the opportunity to ask questions and assume patient care.
--- NOTE | 2020-05-07 18:14 | NUR ---
Problems reprioritized. Patient report given, questions answered & plan of care reviewed with Mauro FUNES.
[2020-05-08 02:00] VITALS: BP 168/119
[2020-05-08] MEDS: lactulose 20gm/30ml cup PO SCH ×2 (02:11→08:41)
[2020-05-08 02:45] VITALS: BP 135/82
[2020-05-08 06:18] LABS: MAGNESIUM 1.1 MG/DL (1.5-2.4); POTASSIUM 3.3 MMOL/L (3.5-5.1)
[2020-05-08 06:29] LABS: PARTIAL THROMBOPLASTIN TIME 32 SECONDS (22-32)
[2020-05-08 06:30] VITALS: BP 118/80
[2020-05-08] MEDS: normal saline 1000ml 1,000 ML IV SCH (07:33)
--- NOTE | 2020-05-08 07:33 | NUR ---
Relieving primary RN Sonali. Administered normal saline, bag wouldn't scan.
[2020-05-08] MEDS: K and/or MAG REPLACEMENT MC SCH (08:00)
[2020-05-08] MEDS: CefTRIAXone/D5W-Rocephin 1gm 50 ML IV SCH (08:00)
[2020-05-08] MEDS: furosemide 40mg tablet PO SCH (08:41)
[2020-05-08] MEDS: thiamine 100mg tablet PO SCH (08:41)
[2020-05-08] MEDS: folic acid 1mg tablet PO SCH (08:41)
[2020-05-08] MEDS: multivitamins, therapeutics tablet PO SCH (08:41)
[2020-05-08] MEDS: propranolol 10mg tablet PO SCH (08:41)
[2020-05-08] MEDS: spironolactone 50 MG tablet PO SCH (08:41)
[2020-05-08] MEDS: HYDROcodone/acetaminophen 5mg/325mg tablet PO PRN (08:45)
[2020-05-08] MEDS: magnesium Cl slow-release 64mg tablet PO PRN (08:45)
[2020-05-08] MEDS: potassium Cl 20 mEq SR tablet PO PRN (08:45)
[2020-05-08] MEDS ORDERED: DICY10CA88 PO (10:00)
[2020-05-08] MEDS ORDERED: folic acid tablet PO (10:00)
[2020-05-08] MEDS ORDERED: LACT10SO32 PO (10:00)
[2020-05-08] MEDS ORDERED: FURO40TA4 PO (10:00)
[2020-05-08] MEDS ORDERED: thiamine tablet PO (10:00)
[2020-05-08] MEDS ORDERED: POTA20TA10 PO (10:00)
[2020-05-08] MEDS ORDERED: MULT-25 PO (10:00)
[2020-05-08] MEDS ORDERED: PROP10TA10 PO (10:00)
[2020-05-08] MEDS ORDERED: LOPE2CAP PO (10:00)
[2020-05-08] MEDS ORDERED: LEVO500T89 PO (10:03)
--- NOTE | 2020-05-08 10:49 | NUR ---
PATIENT STABLE AND APPROPRIATE FOR DISCHARGE HOME WITH FRIEND. IV REMOVED, ALL BELONGINGS TAKEN FROM ROOM. PATIENT BECAME VERY RESTLESS WHEN MD HEARD SHE WAS DISCHARGING. AT THAT POINT SHE PUT ALL HER CLOTHES ON AND REFUSED TO DO ORTHOSTATIC VITALS OR TAKE ANOTHER DOSE OF POTASSIUM. LAST BP 123/85 HR 88. SOCIAL SERVICE AND CASE MANAGEMENT DISCUSSED COMMUNITY RESOURCES. PATIENT STRONGLY ENCOURAGED TO STOP USING DRUGS AND ALCOHOL. SHE STATED TO ME THAT SHE WOULD LIKE TO FIND A RECOVERY CENTER. NEW PRESCRIPTIONS CALLED INTO [facility], PATIENT IS AWARE THAT SHE NEEDS TO [facility] OF [employer]UD[employer] THE MEDICATIONS [facility] AND I LISTED THE NEXT DUE TIMES OF ALL HER MEDICATIONS IN HER DISCHARGE PAPERWORK. ALL QUESTIONS ANSWERED.
== END 2020-05-08 10:49 | disposition home or self-care (01) | DRG 280 ==
LOC: ER 15:00 → ED HOLD 16:48 → UNDOADMIN 17:29 → PCU 3S 19:38 → ED HOLD 19:38 → PCU 3S 05-04 13:38
PROVIDERS: ADMIT Internal Medicine; ATTEND Internal Medicine
PROC: 0W9G3ZZ Drainage of Peritoneal Cavity, Percutaneous Approach (ICD-10-PCS; principal; 2020-05-08)
DX: K70.31 Alcoholic cirrhosis of liver with ascites (principal); D69.59 Other secondary thrombocytopenia; E87.6 Hypokalemia; J44.9 Chronic obstructive pulmonary disease, unspecified; K72.90 Hepatic failure, unspecified without coma; N39.0 Urinary tract infection, site not specified; F10.20 Alcohol dependence, uncomplicated; E87.1 Hypo-osmolality and hyponatremia; B96.20 Unspecified Escherichia coli [E. coli] as the cause of diseases classified elsewhere; I10 Essential (primary) hypertension; Z98.891 History of uterine scar from previous surgery; Z87.828 Personal history of other (healed) physical injury and trauma
CPT/HCPCS: 36415; 70450; 70496; 70498; 70551; 74176; 74177; 76705; 80053; 80305; 80320; 81001; 81025; 82140; 82948; 83605; 83690; 83735; 84132; 84145; 85007; 85025; 85610; 85730; 87040; 87077; 87081; 87088; 87186; 92508; 92616; 93005; 93306; 97110; 97116; 97162; 97530; 99285; G0378; J0696; J2060; J2405; J2543; J2765; J3411; J3430; J3475; J3480; J7030; Q9963; Q9967

== ENCOUNTER 2023-01-05 15:12 | Emergency (ER) | payer MEDICAID, OTHER ==
[~2023-01-05] VITALS: Ht 149.9 cm; Wt 75.0 kg
[~2023-01-05 15:12] MED LIST changes: +DICY10CA88 PO; -FOLI1TAB16 PO; +FURO40TA4 PO; -LACT10SO PO; +LACT10SO78 PO; +LOPE2CAP PO; +MULT-25 PO; -ONDA4TAB6 PO; -PANT40TA4 PO; +POTA-197 PO; +PROP10TA10 PO; -RIFA200T2 PO; -SPIR50TA5 PO; -THI100T PO; +folic acid tablet PO; +thiamine tablet PO
[2023-01-05] MEDS ORDERED: normal saline 1000ml 1,000 ML IV SCH (15:50)
[2023-01-05] MEDS ORDERED: LORazepam 2 mg/ml vial IV ONE (15:50)
--- NOTE | 2023-01-05 16:05 | NUR ---
Met with patient in regards to alcohol use and to see if patient was interested in resources for treatment options. Patient tried going to [facility] but was told to come to the hospital to detox first. Patient is unable to carry full conversation at this time. I will follow back up with patient again.
[2023-01-05 16:27] LABS: BASOPHILS % (AUTO) 0.9 % (0-1); EOSINOPHILS % (AUTO) 2.1 % (0-6); HEMATOCRIT 33.8 % (35.0-45.0); HEMOGLOBIN 11.4 g/dl (12.0-16.0); LYMPHOCYTES # (AUTO) 0.3 X10'3 (1.1-4.8); LYMPHOCYTES % (AUTO) 22.9 % (21-51); MEAN CORPUSCULAR HEMOGLOBIN 31.4 PG (27.0-31.0); MEAN CORPUSCULAR HGB CONC 33.8 g/dL (33.0-36.5); MEAN CORPUSCULAR VOLUME 92.9 FL (78-98); MEAN PLATELET VOLUME 7.4 FL (7.4-10.4); MONOCYTES # (AUTO) 0.2 X10'3 (0-0.9); MONOCYTES % (AUTO) 12.5 % (2-12); NEUTROPHILS # (AUTO) 0.8 X10'3 (1.8-7.7); NEUTROPHILS % (AUTO) 61.6 % (42-75); RED BLOOD COUNT 3.64 X10'6 (4.20-5.60); WHITE BLOOD COUNT 1.4 X10'3 (4.5-11.0)
[2023-01-05 16:40] LABS: APTT 30 SECONDS (22-32)
[2023-01-05 16:42] LABS: ALANINE AMINOTRANSFERASE 62 U/L (12-78); ALBUMIN 2.8 G/DL (3.4-5.0); ALBUMIN/GLOBULIN RATIO 0.8 (1.1-1.5); ALKALINE PHOSPHATASE 122 IU/L (46-116); ANION GAP 9 (8-16); ASPARTATE AMINO TRANSFERASE 148 U/L (10-37); BILIRUBIN,TOTAL 1.3 MG/DL (0.1-1.0); BLOOD UREA NITROGEN 7 MG/DL (7-18); BUN/CREATININE RATIO 17.5 (10.0-20.0); CALCIUM 6.9 MG/DL (8.5-10.1); CHLORIDE 101 MMOL/L (99-107); GLUCOSE 110 MG/DL (70-104); POTASSIUM 3.3 MMOL/L (3.5-5.1); SODIUM 139 MMOL/L (135-145); TOTAL CARBON DIOXIDE 29.4 MMOL/L (24-32); TOTAL PROTEIN 6.3 G/DL (6.4-8.2); eGFR > 90 ML/MIN
[2023-01-05 16:45] LABS: ETHANOL 0.276 GM/DL (0.0-0.010)
[2023-01-05 16:56] LABS: CLARITY,URINE CLOUDY (Clear); COLOR,URINE AMBER (Yellow); GLUCOSE, URINE NEGATIVE (Neg); KETONES,URINE TRACE mg/dl (Neg); LEUKOCYTE ESTERASE ,URINE NEGATIVE (Neg); NITRITES, URINE NEGATIVE (Neg); OCCULT BLOOD,URINE MODERATE (Neg); PH,URINE 6.5 (4.8-8.0); PROTEIN,URINE >=300 mg/dl (Neg); UROBILINOGEN,URINE >=8.0 E.U/dL (0.2-1.0)
[2023-01-05 17:01] LABS: PLATELET COUNT 12 X10'3 (140-440)
[2023-01-05 17:04] LABS: URINE AMPHETAMINE SCREEN NEGATIVE (Neg); URINE BARBITUATE SCREEN NEGATIVE (Neg); URINE BENZODIAZEPINES SCREEN NEGATIVE (Neg); URINE CANNABINOID SCREEN NEGATIVE (Neg); URINE COCAINE SCREEN NEGATIVE (Neg); URINE METHADONE SCREEN NEGATIVE (Neg); URINE OPIATE SCREEN NEGATIVE (Neg); URINE PHENCYCLIDINE SCREEN NEGATIVE (Neg)
--- NOTE | 2023-01-05 17:04 | NUR ---
Lab called with critical value. Platelets 12, WBC 1.4 Dr. Jimenez informed.
[2023-01-05 17:10] LABS: TOTAL CELLS COUNTED 100
[2023-01-05 17:11] LABS: PLATELET ESTIMATE DECREASED
[2023-01-05 17:19] LABS: UA COLLECTION TYPE STRAIGHT CATH
[2023-01-05 17:20] LABS: BACTERIA,URINE 4+ /HPF (Neg); SQUAMOUS EPITHELIAL CELL,UR NONE SEEN /LPF (FEW)
[2023-01-05 18:23] VITALS: BP 113/74
[2023-01-05 18:44] VITALS: BP 108/73
[2023-01-05 19:52] VITALS: BP 122/82
--- NOTE | 2023-01-06 07:35 | NUR ---
FAMILY CALLED AT REGARDING PT'S WHEELCHAIR. REQUESTED THAT THEY CALL BACK REGARDING PICKING UP PT'S WHEELCHAIR
== END 2023-01-06 05:21 | disposition short-term general hospital (02) ==
LOC: ER 15:13
DX: S70.01XA Contusion of right hip, initial encounter (principal); S30.0XXA Contusion of lower back and pelvis, initial encounter; S70.02XA Contusion of left hip, initial encounter; S10.83XA Contusion of other specified part of neck, initial encounter; S20.222A Contusion of left back wall of thorax, initial encounter; S40.022A Contusion of left upper arm, initial encounter; F10.129 Alcohol abuse with intoxication, unspecified; J44.9 Chronic obstructive pulmonary disease, unspecified; G43.909 Migraine, unspecified, not intractable, without status migrainosus; G89.29 Other chronic pain; M54.9 Dorsalgia, unspecified; F12.10 Cannabis abuse, uncomplicated; Z56.0 Unemployment, unspecified; Z79.899 Other long term (current) drug therapy; W18.39XA Other fall on same level, initial encounter; Y93.89 Activity, other specified; Y92.89 Other specified places as the place of occurrence of the external cause; Y99.8 Other external cause status
CPT/HCPCS: 36415; 36430; 70450; 71250; 72125; 73060; 73560; 74176; 80053; 80305; 80320; 81001; 84484; 85007; 85025; 85610; 85730; 86885; 86900; 86901; 96361; 96374; 99285; J2060; J7030; J7040; L0172; P9035; A4565